=== PATIENT | female | born 1950 | race Caucasian/White ===

== ENCOUNTER 2024-04-16 10:54 | Emergency (ER) | payer BC, SELFPAY ==
[2024-04-16 10:59] VITALS: BP 116/75
[2024-04-16 11:38] LABS: COVID-19 Antigen Positive (Negative)
[2024-04-16 13:17] VITALS: BP 115/67
[2024-04-16 13:43] VITALS: BP 117/102
--- NOTE | 2024-04-16 13:54 | ED.GENMED ---
History of Present Illness
General
Chief Complaint: Breathing Problem
Source: patient
Time Seen by Provider: 04/16/24 13:37
History of Present Illness
History of Present Illness:
74-year-old female with no significant past medical history presents to the emergency department for evaluation after starting to feel ill 1 to 2 days prior to Don, continues with cough, body aches, fever, lightheadedness and decreased p.o.
intake. is also sick at home with similar symptoms but no other family members. Patient is currently visiting family from [place] and is scheduled to return back to [place] this coming Monday. Patient did not take any medications prior to
arrival. Social history was unremarkable. Patient is otherwise denying any chest pain, palpitations, diaphoresis, exertional dyspnea, orthopnea, abdominal pain, nausea, vomiting or urinary symptoms.
Past History
Past History
ED Past Medical History: None
ED Past Surgical History: Orthopedic
Social History
Tobacco: Non-smoker
Alcohol: None
Drug: None
Personal:
Living: with family
Review of Systems
Review of Systems
All Other Systems: ROS reviewed and negative except as documented in HPI and ROS
Phy Exam
Physical Exam
Physical Exam:
GENERAL: Alert , in no apparent distress
EYE: conjunctiva clear
Head: Normocephalic atraumatic
NECK: Supple,
ENT: mmm.
LUNGS: no acute respiratory distress
NEUROLOGICAL: Alert and oriented
SKIN: Warm and dry, skin intact.
MUSCULOSKELETAL: well perfused.
PSYCH: Normal and appropriate interaction.
Scores
Heart Failure Risk
Heart Failure Risk Score: Not Applicable
Heart Score for Chest Pain Patients
STEMI patient?: Not applicable
Withdrawal Assessment of Alcohol
Withdrawal Assessment Completed?: Not applicable
Course
Orders/Labs/Results
Orders:
Orders
04/16/24 11:02
CR Chest - 2 Views Urgent
Comment:
Reason For Exam: cough, fever
04/16/24 11:07
Electrocardiogram (*1) Urgent
Reason for Study: Shortness of Breath
EKG- Treatment ONCE
COVID-19 Antigen Urgent
Source: Nasal Swab
Influenza A+B Rapid Molecular Urgent
JASON Source: Nasal Swab
Specimen Description:
Abnormal Lab Results
04/16/24
11:07
SARS-CoV-2 Antigen Positive A
(Negative)
Vital Signs
Initial and Last Documented VS:
Initial Vital Signs
Temp Pulse Resp BP Pulse Ox
98.4 F 84 16 116/75 99
04/16/24 10:59 04/16/24 10:59 04/16/24 10:59 04/16/24 10:59 04/16/24 10:59
Last Documented Vital Signs
Temp Pulse Resp BP Pulse Ox
98.7 F 67 15 140/78 99
04/16/24 13:17 04/16/24 14:00 04/16/24 14:00 04/16/24 14:00 04/16/24 14:00
MDM/Problems Addressed
Differential Diagnosis Includes:
COVID, flu, pneumonia, other viral etiology
MDM/Problems Addressed:
74-year-old female presenting to the emergency department for evaluation cold and flulike symptoms that been ongoing for the last 7 to 8 days. at home sick with similar symptoms. Patient afebrile currently. Did not take any medications
prior to arrival. Patient in no acute respiratory distress. Labs and chest x-ray ordered while in triage. Patient did test positive for COVID which is likely cause of current symptoms. Patient is not a candidate for Paxlovid given duration of
time since illness started. We discussed supportive measures for COVID. Patient is otherwise stable for discharge home and aware of return precautions.
*Radiology
Radiology exam reviewed: preliminary read by ED provider (Unremarkable chest x-ray)
*Pulse Oximetry
Patient hypoxic: no
*Critical Care Note
Total Time (30-74mins, 75-104mins- exclusive of procedures): Not Applicable
ED Attending Note
-
Portions of this chart may have been created with voice recognition software.� Occasional wrong word or��sound alike� substitutions may have occurred due to the inherent limitations of voice recognition software.
Discharge Plan
Departure
Patient Disposition: Home (Routine Discharge)
Date of Disposition: 04/16/24
Time of Disposition: 13:54
Patient with high blood pressure during this ER visit?: No
Discharge Problem:
COVID-19
Instructions: COVID-19 - ED discharge instructions
Prescriptions:
No Action
CALCIUM
BID
Patient Comments:
dose unknown
Coq-10
1 tab DAILY
Patient Comments:
dose unknown
Move Free
1 tab DAILY
Patient Comments:
dose unknown
OMEGA-3
1 tsp DAILY
VITAMIN D
1 tab DAILY
Patient Comments:
unknown dose
Interventions
Interventions:
*Risk Screen - Suicide Last Done: 04/16/24 13:39
*Neglect/Abuse Screening Last Done: 04/16/24 13:39
ED- Fall Risk Assessment Last Done: 04/16/24 13:46
*ED COVID-19 Vaccine History Last Done: 04/16/24 13:39
*Nursing Disposition Last Done: 04/16/24 14:27
ED- Cardiac Assessment Last Done: 04/16/24 13:46
ED- Pulmonary Assessment Last Done: 04/16/24 13:46
Discharge Date and Time
Discharge Date/Time: 04/16/24 14:28
Print Language: BULGARIAN
[2024-04-16 14:00] VITALS: BP 140/78
== END 2024-04-16 14:28 | disposition home or self-care (01) ==
LOC: EMR 10:54
PROVIDERS: Emergency Medicine; EMERGENCY PHYSICIAN Emergency Medicine
DX: U07.1 COVID-19 (principal)
CPT/HCPCS: 99283; 71046; 87502; 87811; 93005

== ENCOUNTER 2024-04-20 17:19 | Inpatient (IN) | payer OTHER, SELFPAY ==
[2024-04-20] VITALS (9 sets, daily range): BP systolic 98–115; BP diastolic 54–67; PULSE 117–118
--- NOTE | 2024-04-20 14:50 | ED.GENMED ---
History of Present Illness
General
Chief Complaint: Breathing Problem
Source: patient
Exam Limitations: none
Time Seen by Provider: 04/20/24 14:40
History of Present Illness
History of Present Illness:
Patient became ill about a week ago. Seen in the ED. Diagnosed with COVID. Has been weak and in bed since then. Today had an episode of diarrhea. Passed out on the floor. No chest pain. Mild shortness of breath. Mostly complaining of severe
fatigue and weakness.
Past History
Past History
ED Past Medical History: None
ED Past Surgical History: Orthopedic
Social History
Tobacco: Non-smoker
Alcohol: None
Drug: None
Personal:
Living: with family
Review of Systems
Review of Systems
All Other Systems: Not applicable
Constitutional: Reports fatigue; Denies fever
Cardiac: Denies chest pain
ABD/GI: Reports vomiting and diarrhea
Phy Exam
Physical Exam
Physical Exam:
GENERAL: Alert and oriented. Generally weak appearing. Hypoxic on room air.
EYE: Orbits normal.
NECK: Supple, no significant adenopathy.
ENT: Pharynx without erythema
CARDIAC: Tachycardic and regular no murmur regular rate and rhythm without any obvious murmurs.
LUNGS: Mild tachypnea. Decreased breath usually. Mild rhonchi left base
ABDOMEN: Soft, without focal tenderness or distention
NEUROLOGICAL: Alert and oriented , grossly non-focal
SKIN: Warm and dry, no rash or lesion, no discoloration, skin intact.
MUSCULOSKELETAL: No edema,no deformity.Good color
PSYCH: Normal and appropriate interaction.
Scores
Heart Failure Risk
Heart Failure Risk Score: Not Applicable
Sepsis
Sepsis Screening
Sepsis Assessment: Sepsis Ruled Out
Sepsis Screen
Sepsis Screen: Sepsis Ruled Out
Date: 04/20/24
Time: 22:43
Course
Orders/Labs/Results
Orders:
Orders
04/20/24 14:47
Cardiac Monitoring- Treatment ONCE
IV Insert/Care/Rem.- Treatment PRN
0.9% Sodium Chloride 1000 ml [Nss] 1,000 ml IV BOLUS
CXR Port [CR Chest Portable - 1 View] Urgent
Comment:
Reason For Exam: COVID-positive, short of breath, hypoxia
Reason Study Needs to be Portable: Patient Unstable
O2 Therapy [RESP] Stat
Titrate/Wean O2 to maintain O2 sat greater than (%): 94
Pulse Ox/cont/shift [RESP] Stat
Quantity: 1
04/20/24 14:48
Electrocardiogram (*1) Stat
Reason for Study: Other
Other Reason for Exam: pneumonia
EKG- Treatment ONCE
04/20/24 14:54
Complete Blood Count/With Diff Urgent
Comprehensive Metabolic Panel Urgent
TSH Reflex To Free T4 Urgent
Comment: ADD ON
Blood Culture Q30M
JASON Source: Blood/Venous
Specimen Description:
Influenza A+B Rapid Molecular Urgent
JASON Source: Nasal Swab
Specimen Description:
04/20/24 Dinner
Regular
At Your Request: Full Participation
04/20/24 15:53
CefTRIAXone [Rocephin] 1,000 mg IV NOW STA
04/20/24 16:32
Blood Culture Q30M
JASON Source: Blood/Venous
Specimen Description:
04/20/24 16:58
Add On- LAB Urgent
Tests Added?: lactic acid, procalcitonin
Add On- LAB Urgent
Tests Added?: tsh with free t4 reflex
04/20/24 16:59
Admit/Transfer Patient As Directed
Co-Sign Provider:
Level of Care: Inpatient admission
Assign to:: Telemetry
Physician / Group: [email or web address],roopa
Diagnosis: hypoxic resp insuff 2/2 RLL pna recent covid
Reason for Telemetry: Arrhythmia
Date to Stop Telemetry: 04/23/24
Time to Stop Telemetry: 11:00
Reason for Hospitalization: hypoxic resp insuff 2/2 RLL pna recent covid
Expected length of stay greater than two midnights?: Yes
ELOS- Estimated Length of Stay in days: 4
I certify the patient meets the requirements for IP care: Yes
Code Status As Directed
Resuscitation Status: Full Code
Urine Osmolality Random [Osmolality, Random Urine] Routine
Urine Sodium Routine
04/20/24 17:00
0.9% Sodium Chloride 1000 ml [Nss] 1,000 ml IV 100 mls/hr
04/20/24 17:02
PRN Pain Medication Management As Directed
May give lesser potent ordered pain med per pt: Yes
preference::
Protocol:: Medication orders for pain may be administered in a
manner that supports deferring to patient preference
when the pt is:
- Requesting an ordered lesser potent pain medication.
Least to most potent pain medications are defined
as: acetaminophen < NSAID < tramadol < opioids
(morphine, oxycodone, hydromorphone).
- Requesting a lesser dose of the same medication IF
ORDERED.
- Requesting a less intrusive route of administration
if both routes are prescribed by the provider (PO <
IV).
04/20/24 17:04
INFECTIOUS DISEASE CONSULT Routine
Consulting Provider: Daphne Bonilla
Was physician already notified: Yes
Reason for consult: hyoxia,sepsis pna, recent covid multi allergies
04/20/24 17:05
Lactate Level [Lactic Acid] Routine
Osmolality Serum [Serum Osmolality] Routine
04/20/24 19:11
COVID-19 Antigen Urgent
Source: Nasal Swab
04/20/24 20:00
Guaifenesin [Mucinex] 600 mg PO Q12
04/20/24 21:38
Acetaminophen [Tylenol] 650 mg PO Q4HPRN PRN
Enoxaparin Sodium [Lovenox] 40 mg SC QPM
Ipratropium/Albuterol Sulfate [Duoneb] 3 ml INH R Q4HPRN PRN
Ipratropium/Albuterol Sulfate [Duoneb] 3 ml INH R QID
Ondansetron Injectable [Zofran] 4 mg IV Q6HPRN PRN
04/20/24 21:38
Activity As Directed
Activity Level: As Tolerated
Intake/ Output As Directed
Frequency: Per unit guidelines
Orthostatic Vital Signs As Directed
Orthostatic VS Frequency: Daily
Precautions As Directed
Type of Precautions: Droplet
Comment: covid
Vital Signs As Directed
Frequency: Per unit guidelines
O2 Therapy [RESP] Routine
Nasal Cannula Liter Flow: 4 LPM
Titrate/Wean O2 to maintain O2 sat greater than (%): 92
Pulse Ox/spot Check [RESP] Routine
Quantity: 1
Ot Eval And Treat Routine
Pt Eval And Treat Routine
Activity Level: As Tolerated
DX Deep Vein Thrombosis Video Routine
04/21/24 06:00
Complete Blood Count/With Diff IN AM
Comprehensive Metabolic Panel IN AM
04/21/24 12:00
CefTRIAXone [Rocephin] 1,000 mg IV Q24H
04/22/24 06:00
Complete Blood Count/With Diff IN AM
Comprehensive Metabolic Panel IN AM
04/23/24 06:00
Complete Blood Count/With Diff IN AM
Comprehensive Metabolic Panel IN AM
04/23/24 11:00
DC Protocol for Telemetry ONCE
04/24/24 06:00
Complete Blood Count/With Diff IN AM
Comprehensive Metabolic Panel IN AM
Abnormal Lab Results
04/20/24 04/20/24
14:54 17:05
WBC 18.5 H 10^3/uL
(4.8-10.8)
MCH 31.4 H pg
(27.0-31.0)
Abs Immat Gran (auto) 0.1 H 10^3/uL
(0-0.05)
Absolute Neuts (auto) 17.6 H 10^3/uL
(1.4-6.5)
Absolute Lymphs (auto) 0.4 L 10^3/uL
(1.2-3.4)
Immature Gran % 0.6 H %
(0-0.5)
Neutrophils % 95.5 H %
(42.2-75.2)
Lymphocytes % 2.0 L %
(20.5-51.1)
Monocytes % 1.3 L %
(1.7-9.3)
Sodium 128 L mmol/L
(135-145)
Chloride 95 L mmol/L
(98-107)
Carbon Dioxide 19 L mmol/L
(22-30)
BUN 21 H mg/dl
(7-17)
Glucose 144 H mg/dl
(70-99)
Serum Osmolality 273 L mOsm/kg
(275-300)
Calcium 8.2 L mg/dl
(8.4-10.2)
Total Bilirubin 1.9 H mg/dl
(0.2-1.3)
Alkaline Phosphatase 127 H U/L
(38-126)
Total Protein 5.8 L g/dl
(6.3-8.2)
Albumin 3.1 L g/dl
(3.5-5.0)
04/20/24 14:54
04/20/24 14:54
Vital Signs
Initial and Last Documented VS:
Initial Vital Signs
Temp Pulse Resp BP Pulse Ox
99 F 125 22 105/64 89
04/20/24 14:41 04/20/24 14:41 04/20/24 14:41 04/20/24 14:41 04/20/24 14:41
Last Documented Vital Signs
Temp Pulse Resp BP Pulse Ox
102 F H 118 18 111/61 94
04/20/24 22:16 04/20/24 22:16 04/20/24 22:16 04/20/24 22:16 04/20/24 22:16
MDM/Problems Addressed
Differential Diagnosis Includes:
Recent COVID infection. Right lower lobe infiltrate. Likely secondary bacterial. Given allergies to medications. Erythromycin causes hives. Unknown about the tetracycline. She thinks she has taken cephalosporins in the past. Penicillin caused
an unknown issue in her 20s. Feel cephalosporins are safe at this time. Will discuss again to cover the atypicals with the patient
*Radiology
Radiology exam reviewed: preliminary read by ED provider (Right lower lobe infiltrate) and radiology read reviewed (Right lower lobe infiltrate)
*Pulse Oximetry
Patient hypoxic: yes
*Critical Care Note
Total Time (30-74mins, 75-104mins- exclusive of procedures): Not Applicable
Data Reviewed
Review of Other/Old Records Reveals: Labs, Records, Radiology Studies and Testing
ED Attending Note
-
Portions of this chart may have been created with voice recognition software.� Occasional wrong word or��sound alike� substitutions may have occurred due to the inherent limitations of voice recognition software.
Discharge Plan
Departure
Patient Disposition: Admit
Date of Disposition: 04/20/24
Time of Disposition: 16:00
Presentation/result/management discussed w/ accepting MD/DO: Hospitalist
Discharge Problem:
Right lower lobe pneumonia, Right lower lobe pneumon hypoxia, Recent COVID
Interventions
Interventions:
*Risk Screen - Suicide Last Done: 04/20/24 22:13
*General Assessment Last Done: 04/20/24 14:41
*Neglect/Abuse Screening Last Done: 04/20/24 14:41
*ED COVID-19 Vaccine History Last Done: 04/20/24 22:13
*Nursing Disposition Last Done: 04/20/24 21:32
ED- Cardiac Assessment Last Done: 04/20/24 15:00
ED- Pulmonary Assessment Last Done: 04/20/24 15:00
Discharge Date and Time
Discharge Date/Time: 04/20/24 21:34
[2024-04-20] MEDS: NSS 1000 IV ×2 (14:58→18:28)
[2024-04-20 15:08] LABS: Hematocrit 41.9 % (37.0-47.0); Hemoglobin 14.5 g/dL (12.0-16.0); Mean Corp Hgb Conc. 34.6 g/dL (33.0-37.0); Mean Corpuscular Hgb 31.4 pg (27.0-31.0); Mean Corpuscular Volume 90.7 fL (81.0-99.0); Platelet Count 257 10^3/uL (130-400); Red Blood Cell Count 4.62 10^6/uL (4.20-5.40); White Blood Cell Count 18.5 10^3/uL (4.8-10.8)
[2024-04-20 15:33] LABS: % Basophils 0.6 % (0-2); % Immature Granulocytes 0.6 % (0-0.5); % Monocytes 1.3 % (1.7-9.3); % Neutrophils 95.5 % (42.2-75.2); Absolute Basophils 0.1 10^3/uL (0-0.2); Absolute Immature Granulocytes 0.1 10^3/uL (0-0.05); Absolute Lymphocytes 0.4 10^3/uL (1.2-3.4); Absolute Monocytes 0.2 10^3/uL (0.1-0.6); Absolute Neutrophils 17.6 10^3/uL (1.4-6.5); Nucleated Red Blood Cells % 0 %
[2024-04-20 15:44] LABS: ALT (SGPT) 22 U/L (0-35); AST (SGOT) 32 U/L (14-36); Albumin 3.1 g/dl (3.5-5.0); Alkaline Phosphatase 127 U/L (38-126); Blood Urea Nitrogen 21 mg/dl (7-17); Calcium 8.2 mg/dl (8.4-10.2); Carbon Dioxide 19 mmol/L (22-30); Chloride 95 mmol/L (98-107); Estimated Creatinine Clearance 49 ml/min; Glucose 144 mg/dl (70-99); Potassium 4.1 mmol/L (3.5-5.1); Sodium 128 mmol/L (135-145); Total Bilirubin 1.9 mg/dl (0.2-1.3); Total Protein 5.8 g/dl (6.3-8.2); eGFR 58.75
--- NOTE | 2024-04-20 16:09 | HPS.HSE ---
Family Physician
-
Family Physician: NOT KNOW UNKNOWN - PT DOES
Chief Complaint
-
sob cough
History of Present Illness
74-year-old female who reports she was diagnosed with COVID on 04/16, since then she has been severely weak and in bed. She reports having weakness, shortness breath with cough since [place] 04/10/2024. She reports an episode of diarrhea today
and passed out on the floor. She complains of mild shortness of breath, however pulse ox is 89% RA. Her pulse ox is 96% on 4 L nasal cannula. She denies headache, sore throat, chest pain, palpitations, cough, abdominal pain, nausea, vomiting,
urinary symptoms. She past medical history fibromyalgia, right parotidectomy February 2011, confusion for 3 weeks post colonoscopy.
Medical History
Past Medical History
Past Medical History: Reports Other
Additional Past Medical History:
fibromyalgia,
right parotidectomy benign February 2011
confusion for 3 weeks post colonoscopy.
Past Surgical History: Reports Other
Additional Past Surgical History:
right parotidectomy benign February 2011
Social History
Tobacco: Non-smoker
Alcohol: None
Drug: None
Personal: Single
Living: Alone
Employment: Retired
Family History
Family History: Not pertinent
Allergies / Home Medications
Allergies reflects when Allergies were last updated in [facility].
Home Medications with original date entered in [facility]
Allergy/Medication List:
Allergies
Allergy/AdvReac Type Severity Reaction Status Date / Time
cephalexin monohydrate Allergy Unknown Verified 04/20/24 14:44
[From Keflex]
doxycycline Allergy Unknown Verified 04/20/24 14:44
erythromycin base Allergy Unknown Verified 04/20/24 14:44
[Erythromycin Base]
levofloxacin [From Levaquin] Allergy Unknown Verified 04/20/24 14:44
Penicillins Allergy Unknown Verified 04/20/24 14:44
tetracycline [Tetracycline] Allergy Unknown Verified 04/20/24 14:44
brie cheese Allergy Hives, Uncoded 04/20/24 14:44
swelling
Home Medications
ibuprofen 200 mg tablet 400 mg PO DAILYPRN PRN mild pain 04/20/24
Review of Systems
-
History Source: Patient and Family (Friend at bedside)
A 12 point ROS was completed and negative except as noted: Yes
Constitutional: Reports Fatigue; Denies Fever or Chills
EENT: Denies Sore Throat or Runny Nose
Respiratory: Reports Cough and Trouble Breathing (Shortness of breath, MAIER, wheezing)
Cardiac: Reports Syncope; Denies Chest Pain, Diaphoresis or Palpitations
Abdomen/GI: Denies Abdominal Pain, Nausea, Vomiting, Diarrhea, Constipated, Bloody Stools or Black Stools
: Denies Dysuria, Frequency, Flank Pain, Incontinence, Difficulty Voiding or Urgency
Musculoskeletal: Denies Joint Pain or Edema
Skin: Denies Itching or Rash
Neurological: Reports Weakness; Denies Dizzy or Headache
Endocrine: Reports No Symptoms
Hematologic/Lymphatic: Reports No Symptoms
Psych: Reports Calm
Physical Exam
Vital Signs
Vital Signs
Temp Pulse Resp BP Pulse Ox
99 F 125 22 105/64 89
04/20/24 14:41 04/20/24 14:41 04/20/24 14:41 04/20/24 14:41 04/20/24 14:41
Physical Exam
General: Conversant and Other (Awake alert oriented, poor historian); No Pain, Fever or Chills
HEENT: NormoCephalic, Anicteric, PERRLA, [place] Conjunctivae, No Ptosis and Oxygen (4 L nasal cannula)
Respiratory: Wheezes (Expiratory); No Rales or Rhonchi
Cardiac: S1/S2 and Tachycardia (Sinus); No Murmur, Rub, Gallop or Peripheral Edema
Breast: Deferred by me
GI: Soft, Non Tender, Non Distended and Normal Bowel Sounds
Rectal: Deferred by Provider
Genito-urinary: Deferred by me
Musculoskeletal: No Clubbing, No Cyanosis and No Edema
Skin: Warm and Dry; No Rash or Jaundice
Neuro: AO x 3 (But very poor historian), Cranial Nerves Intact and No Sensory Deficits; No Slurred Speech, Facial Droop, Tremors or Sedated
Psych: Anxious
Laboratory Results
-
04/20/24 14:54
04/20/24 14:54
Laboratory Results
Total Bilirubin 1.9 mg/dl (0.2-1.3) H 04/20/24 14:54
AST 32 U/L (14-36) 04/20/24 14:54
ALT 22 U/L (0-35) 04/20/24 14:54
Alkaline Phosphatase 127 U/L (38-126) H 04/20/24 14:54
Data Reviewed
-
Diagnostic Radiology: Report Reviewed by me
Lab Data: Labs Reviewed by me
Impression/Plan
-
Impression/plan:
Admit to telemetry
#Sepsis 2/2 right lower lobe pneumonia recent COVID
WBC 18.5 with left shift, 99F, HR 125, 105/64
-IV 1 L NSS given in ER
-IV Rocephin due to multi abx allerrgies
- consult ID for Abx mgmt
-Mucinex twice daily
-Follow CBC, CMP
CXR:
1. New moderate asymmetric opacity in the right lower lung most consistent with MODERATE RIGHT LOWER LOBE PNEUMONIA.
2. An acute inflammatory pneumonitis or subsegmental atelectasis are considered less likely.
#Vasovagal syncope secondary hypovolemia
-IV NSS 1 L given in ER
-Continue IV NSS 80 cc/h
-Check orthostatic vitals tomorrow
#Hypovolemic hyponatremia
NA 128
Urine NA, urine Osmo, serum Osmo, TSH with free T4 reflex
IV NSS 1 liter given in er
Iv nss 80 cc/hr
-Follow BMP
#Fibromyalgia Hx
Other PMH:
right parotidectomy February 2011
confusion for 3 weeks post colonoscopy
DVT prophylaxis
Subcu Lovenox
Full code
[2024-04-20] MEDS: ROCEPHIN 1000 MG IV (16:36)
--- NOTE | 2024-04-20 16:44 | W.PN.UPDATE ---
Update Note
Progress Note Update
This note serves as an addendum to the H&P by top former [facility]
Marion ISABEL
HPI
74F fibromyalgia, remote HX right parotidectomy seen at ER:
- she was diagnosed with COVID 1 week ago, since then she has been severely weak and in bed.
- episode of diarrhea today and passed out on the floor.
- mild shortness of breath
ROS:
denies headache, sore throat, chest pain, palpitations, cough, abdominal pain, nausea, vomiting, urinary symptoms.
PHX; see above
Reviewed VS: ST, borderline hypotensive, tachypneic, POx 89 on RA
PE
Gen: thin, anxious , teary
HEENT: anicteric
Neck: supple
Lungs: cough with deep breathing hus limit the exam
Cor: RRR S1 S2
Abdomen: soft benign
HAM SMOKER: AAO3
MS: no edema
Psych: anxious
Laboratory Tests
04/20/24
14:54
WBC 18.5 H
Sodium 128 L
Chloride 95 L
Carbon Dioxide 19 L
BUN 21 H
Creatinine 1.0
eGFR 58.75
BCx sent
CXR:
New moderate asymmetric opacity in the right lower lung most consistent with MODERATE RIGHT LOWER LOBE PNEUMONIA. An acute inflammatory pneumonitis or subsegmental atelectasis are considered less likely.
ASSESSMENT & PLAN
Sepsis due to PNA ; WCC > 10, ST, tachypneic - s/p septic NS 1 L
Rt LL PNA presumed CAP
Asso. acute Hypoxic RI
HX PCN, LVQ , Doxy, Keflex allergy with unknown allergy
Recent POS Covid 04/16/24 , onset was since 04/09/24
- NS @ 80/H
- IV CFTX
- Mucinex BID
- f/u BCx
- O2 PRN; Goal POx > 94 %
- ID consult for choice of ABx
Suspect vasovagal syncope
Hypovolemia
- TLM monitor
DVT Px: LMWH
Full code
IP TLM
--- NOTE | 2024-04-20 17:06 | CON.ID ---
Consultation
-
Date/Time Consultation Requested: April 20 2024 1645
Date/Time Consultation Performed: April 20, 2024 1710
Requesting Provider: Marion Fields NP
Performing Provider: Dr. Daphne Bonilla
Reason for Consultation: Pneumonia, multiple antibiotic allergies
Chief Complaint / Past History
Chief Complaint
Cough, SOB
History of Present Illness
74-year-old female without significant PMHx from [place], currently visiting family since 04/03 who developed cough, myalgia, fever the day prior to [place]. Her and 6 year old grandson had similar sxs. She presented to [facility]
April 16. She tested positive for COVID. She is not up to date with vaccine.. Chest x-ray negative. She was saturating well in room air. She was not a candidate for Paxlovid given symptoms for 7 to 8 days prior to presentation. She was
discharged to home. However she continued to feel unwell with profound weakness. She was not able to get out of bed. Appetite poor. + dry cough and shortness of breath. She had diarrhea today. Her son intended to bring her to the hospital, but
was too weak to walk to the car and she passed out briefly. EMS brought her to the ER. O2 sat 89% room air. WBC 18.5. Chest x-ray shows new right lower lobe opacity. She received ceftriaxone. She has multiple abx allergies recieved in her 20's
and she cannot recall the reactions, possibly rash. Reactions were not serious. She is able to take the abx with Benadryl.
Past History
Additional Past Medical History:
Fibromyalgia - resolved
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
Allergy History:
cephalexin monohydrate [From Keflex] Allergy (Verified 04/20/24 14:44)
Unknown
doxycycline Allergy (Verified 04/20/24 14:44)
Unknown
erythromycin base [Erythromycin Base] Allergy (Verified 04/20/24 14:44)
Unknown
levofloxacin [From Levaquin] Allergy (Verified 04/20/24 14:44)
Unknown
Penicillins Allergy (Verified 04/20/24 14:44)
Unknown
tetracycline [Tetracycline] Allergy (Verified 04/20/24 14:44)
Unknown
brie cheese Allergy (Uncoded 04/20/24 14:44)
Hives, swelling
Medications Reviewed: Yes
Current Antibiotics:
Ceftriaxone
Social History
Tobacco: Non-Smoker
Alcohol: None
Drug: None
Personal:
Living: Other (Lives in [place])
Family History
Family History: Not Pertinent
Review of Systems
Review of Systems
General: Fever, Chills and Change in Appetite
HEENT: Negative Stiff Neck, Sinus Problems, Headache or Pharyngitis
Cardiovascular: Chest Pain and Dyspnea
Respiratory: Dyspnea and Cough; Negative Sputum Production
Gasteroenterology: Diarrhea (today); Negative Nausea or Vomiting
Genital / Urological: Negative Dysuria or Flank Pain
Endocrine: Weakness
Musculoskeletal: Negative Arthralgias
Skin / Hair / Nails: Negative Rash
Neurological: Negative Dizziness
All systems: All other systems were reviewed and were negative
Vital Signs
Temp Pulse Resp BP Pulse Ox
99 F 125 22 105/64 89
04/20/24 14:41 04/20/24 14:41 04/20/24 14:41 04/20/24 14:41 04/20/24 14:41
Physical Exam
Physical Exam
Constitutional: Acutely Ill
Head: Other (No frontal or maxillary sinus tenderness)
Eyes: No Conjunctival Hemorrhage and Sclera Anicteric
Cardiovascular: S1/S2 and Other (Tachycardic)
Pulmonary: Rales (Right base crackles)
Gastrointestinal: Soft, Non Tender, Non Distended and Normal Bowel Sounds
Genito-Urinary: Negative CVA Tenderness
Extremities: Negative Edema
Neurological: AO x 3
Lab / Diagnostic Study Results
04/20/24 14:54
04/20/24 14:54
Abs Immat Gran (auto) 0.1 10^3/uL (0-0.05) H 04/20/24 14:54
Absolute Neuts (auto) 17.6 10^3/uL (1.4-6.5) H 04/20/24 14:54
Absolute Lymphs (auto) 0.4 10^3/uL (1.2-3.4) L 04/20/24 14:54
Absolute Monos (auto) 0.2 10^3/uL (0.1-0.6) 04/20/24 14:54
Absolute Basos (auto) 0.1 10^3/uL (0-0.2) 04/20/24 14:54
Immature Gran % 0.6 % (0-0.5) H 04/20/24 14:54
Neutrophils % 95.5 % (42.2-75.2) H 04/20/24 14:54
Lymphocytes % 2.0 % (20.5-51.1) L 04/20/24 14:54
Monocytes % 1.3 % (1.7-9.3) L 04/20/24 14:54
Eosinophils % 0.0 % (0-6) 04/20/24 14:54
Basophils % 0.6 % (0-2) 04/20/24 14:54
Microbiology Results
Micro:
04/20/24 16:32 Blood Culture - Pending
Blood/Venous
04/20/24 14:54 Influenza Types A & B (LISSETH) - Final
Nasal Swab Negative for Influenza A & B, NAAT
Negative results must be combined with clinical observations
and patient history.
Nucleic Acid Amplification test (NAAT)performed on the
[employer] platform.
04/20/24 14:54 Blood Culture - Pending
Blood/Venous
04/20/24 CXR: New moderate asymmetric opacity in the right lower lung most consistent with MODERATE RIGHT LOWER LOBE PNEUMONIA.
Assessment / Plan
# Recent COVID 19 infection
- Unvaccinated status
- Symptom onset 04/09/24
- 04/16 COVID19 antigen positive
- 04/16 CXR negative
- Presented to ED 04/16 , out of window for treatment.
- If repeat COVID 19 remains positive, isolate.
# RLL CAP
# Leukocytosis
# Hypoxic respiratory insufficiency
# Multiple abx allergies
- Flu neg.
- Ordered urine legionella and strep pneumoniae antigen.
- Continue ceftriaxone.
- Add Azithromycin 500mg po daily.
- Monitor closely for drug reaction
- Trend wbc/temps.
[2024-04-20 17:35] LABS: Osmolality Serum 273 mOsm/kg (275-300)
[2024-04-20 17:41] LABS: Lactic Acid 1.6 mmol/L (0.7-2.0)
[2024-04-20] MEDS: ZITHROMAX 500 MG PO (18:23)
[2024-04-20 18:31] LABS: TSH Reflex To Free T4 2.78 uIU/ml (0.47-4.68)
[2024-04-20 19:59] LABS: Lactic Acid 1.3 mmol/L (0.7-2.0)
[2024-04-20 20:00] LABS: COVID-19 Antigen Positive (Negative)
[2024-04-20] MEDS: MUCINEX 600 MG PO (20:10)
[2024-04-20 20:20] LABS: Procalcitonin 14.06 ng/ml (0.0-0.25)
--- NOTE | 2024-04-20 22:00 | PTCARENOTE ---
Received patient from ED. Patient weak and was transferred directly to the bed. Patient assessed. AAOx3, Lungs shallow, decreased, dyspneic on exertion on 4L POX 94. IVF infusing. Patient verbalized an understanding to ring for all transfers. Bed
alarm placed for safety. Patient oriented to the unit. Call underwood in reach.
[2024-04-20] MEDS: LOVENOX 40 MG SC (22:01)
[2024-04-20] MEDS: TYLENOL 650 MG PO (22:02)
[2024-04-21] VITALS (8 sets, daily range): BP systolic 102–138; BP diastolic 57–67; O2SAT 95
[2024-04-21] MEDS: NSS 1000 IV (02:33)
[2024-04-21 06:52] LABS: Hematocrit 35.8 % (37.0-47.0); Hemoglobin 12.6 g/dL (12.0-16.0); Mean Corp Hgb Conc. 35.2 g/dL (33.0-37.0); Mean Corpuscular Hgb 31.7 pg (27.0-31.0); Mean Corpuscular Volume 89.9 fL (81.0-99.0); Mean Platelet Volume 10.5 fL (7.4-10.4); Platelet Count 247 10^3/uL (130-400); Red Blood Cell Count 3.98 10^6/uL (4.20-5.40); Red Cell Dist. Width 12.9 % (11.5-14.5)
[2024-04-21 07:12] LABS: ALT (SGPT) 18 U/L (0-35); AST (SGOT) 25 U/L (14-36); Albumin 2.5 g/dl (3.5-5.0); Alkaline Phosphatase 102 U/L (38-126); Blood Urea Nitrogen 23 mg/dl (7-17); Calcium 7.7 mg/dl (8.4-10.2); Carbon Dioxide 19 mmol/L (22-30); Chloride 101 mmol/L (98-107); Estimated Creatinine Clearance 51 ml/min; Glucose 99 mg/dl (70-99); Potassium 4.1 mmol/L (3.5-5.1); Sodium 128 mmol/L (135-145); Total Bilirubin 1.2 mg/dl (0.2-1.3); eGFR > 60.00
[2024-04-21 08:01] LABS: % Basophils 0.1 % (0-2); % Eosinophils 0.1 % (0-6); % Immature Granulocytes 0.9 % (0-0.5); % Lymphocytes 4.2 % (20.5-51.1); % Monocytes 1.6 % (1.7-9.3); % Neutrophils 93.1 % (42.2-75.2); Absolute Immature Granulocytes 0.1 10^3/uL (0-0.05); Absolute Lymphocytes 0.6 10^3/uL (1.2-3.4); Absolute Monocytes 0.2 10^3/uL (0.1-0.6); Nucleated Red Blood Cells % 0 %
[2024-04-21] MEDS: MUCINEX 600 MG PO ×2 (08:20→21:53)
[2024-04-21] MEDS: ZITHROMAX 500 MG PO (08:20)
[2024-04-21] MEDS: ProAIR HFA INHALER 1 PUFF INH ×2 (08:44→12:30)
--- NOTE | 2024-04-21 11:25 | W.PN.ID1 ---
Date of Service
Date of Service: April 21, 2024
Today's Communication
Continue ceftriaxone and azithromycin.
Assessment / Plan
# RLL CAP
# Leukocytosis - improving
# Fever
# Hyponatremia - ?legionella
# Hypoxic respiratory insufficiency, off O2
# Multiple abx allergies
- Flu neg.
- Ordered urine legionella and strep pneumoniae antigen.
- Continue ceftriaxone and azithromycin (d2)
- Trend wbc/temps.
# Recent COVID 19 infection
- Unvaccinated status
- Symptom onset 04/09/24
- 04/16 COVID19 antigen positive
- 04/16 CXR negative
- Presented to ED 04/16 , out of window for treatment.
- 04/20/24 repeat COVID 19 remains positive, continue isolation.
# Deconditioned state
- PT/OT eval
Chief Complaint
-: Pneumonia
Subjective / Review of Systems
C/o profound weakness.
Cough slightly better.
No further diarrhea.
Vital Signs / Physical Exam
Vital Signs
Vital Signs
Temp Pulse Resp BP Pulse Ox
98.9 F 88 16 109/61 94
04/21/24 07:35 04/21/24 08:56 04/21/24 08:56 04/21/24 07:35 04/21/24 08:56
Physical Exam
Constitutional: Acutely Ill
Eyes: Sclera Anicteric
Cardiovascular: Regular Rate and S1/S2
Pulmonary: Coarse (right base crackles. )
Gastrointestinal: Soft, Non Tender, Non Distended and Normal Bowel Sounds
Extremities: Negative Edema
Neurological: AO x 3
Objective Data
Lab Data
Lab Results
04/21/24 05:41
04/21/24 05:41
Estimated Creat Clear 51 ml/min 04/21/24 05:41
Lactic Acid 1.3 mmol/L (0.7-2.0) 04/20/24 19:11
Total Bilirubin 1.2 mg/dl (0.2-1.3) 04/21/24 05:41
AST 25 U/L (14-36) 04/21/24 05:41
ALT 18 U/L (0-35) 04/21/24 05:41
Alkaline Phosphatase 102 U/L (38-126) 04/21/24 05:41
Most recent labs reviewed.
Micro Results:
04/20/24 16:32 Blood Culture - Pending
Blood/Venous
04/20/24 14:54 Influenza Types A & B (LISSETH) - Final
Nasal Swab Negative for Influenza A & B, NAAT
Negative results must be combined with clinical observations
and patient history.
Nucleic Acid Amplification test (NAAT)performed on the
[employer] platform.
04/20/24 14:54 Blood Culture - Pending
Blood/Venous
04/20/24 CXR: New moderate asymmetric opacity in the right lower lung most consistent with MODERATE RIGHT LOWER LOBE PNEUMONIA.
[2024-04-21] MEDS: ROCEPHIN 1000 MG IV (12:36)
[2024-04-21] MEDS: STERILE WATER FOR INJECTION 10 ML IV (12:37)
--- NOTE | 2024-04-21 14:20 | W.PN.HOSP.TC ---
Today's Communication/Plan
-
IV abx for now
off oxygen
SNF on dc
IV for now
Assessment / Plan
Assessment / Plan
#Sepsis 2/2 right lower lobe secondary bacterial pneumonia in setting of recent COVID infection--poa
WBC 18.5 with left shift, 99F, HR 125, 105/64
-IV 1 L NSS given in ER
-IV Rocephin and azithromycin
-Mucinex twice daily
-Follow CBC, CMP. WBC downtrending. LA wnl. Procal of 14 noted on admission
-Symptomatic management. Patient weaned off to room air.
-should get repeat CXR in 4-6 weeks to assess for resolution
# Acute hypoxic respiratory insufficiency likely secondary to above
-Patient weaned off to room air. As needed inhalers
#Vasovagal syncope secondary hypovolemia
-IV NSS 1 L given in ER
-Continue IV NSS 80 cc/h
#Hypovolemic hyponatremia
NA 128
, TSH with free T4 reflex
IV NSS 1 liter given in er
Iv nss 80 cc/hr
-Follow BMP
#Fibromyalgia Hx
DVT prophylaxis
Subcu Lovenox
Full code
PT/OT-SNF. CM aware.
Anticipated Discharge: 24 - 48 hours
Subjective/Interval History
-
Date of Service: April 21, 2024
weaned off oxygen on room air
states she feels extremely tired
spiked fever overnight
Objective Data
-
Labs:
Laboratory Results
04/21/24
05:41
WBC 15.0 H
Hgb 12.6
Hct 35.8 L
Plt Count 247
Sodium 128 L
Potassium 4.1
Chloride 101
Carbon Dioxide 19 L
BUN 23 H
Creatinine 0.9
Glucose 99
Calcium 7.7 L
Total Bilirubin 1.2
AST 25
ALT 18
Alkaline Phosphatase 102
Vital Signs:
Vital Signs
Temp Pulse Resp BP Pulse Ox
98.9 F 101 16 109/61 97
04/21/24 07:35 04/21/24 12:35 04/21/24 12:35 04/21/24 07:35 04/21/24 12:35
I&O
04/20/24 04/21/24 04/22/24
06:59 06:59 06:59
Intake Total 1679
Balance 1679
Physical Exam
-
General: Appears Chronically Ill and Cachectic
HEENT: Normocephalic, Atraumatic and Moist Mucous Membranes
Respiratory: Clear to Auscultation
Cardiac: Regular Rhythm and S1/S2; Negative Murmur, Rub or Gallop
GI: Soft, Nontender, Nondistended and Normal Bowel Sounds; Negative Organomegaly
Rectal: Deferred by Provider
Musculoskeletal: No Clubbing, No Cyanosis and No Edema
Skin: Negative Rash
Neuro: Awake, AO x 3, No Motor Deficits and Nonfocal/Grossly Intact
Psych: Calm
Data Reviewed
-
Total Time Spent with Patient (in minutes): 55
[2024-04-21] MEDS: LOVENOX 40 MG SC (17:03)
[2024-04-21] MEDS: NSS IV (21:52)
[2024-04-21] MEDS: BENADRYL 25 MG PO (23:01)
[2024-04-22] VITALS (7 sets, daily range): BP systolic 116–135; BP diastolic 61–71
[2024-04-22 03:08] LABS: Osmolality Urine 482 mOsm/kg (300-900)
[2024-04-22 03:19] LABS: Urine Sodium 7 mmol/L (30-90)
[2024-04-22] MEDS: NSS 1000 IV (05:36)
[2024-04-22 07:26] LABS: % Basophils 0.4 % (0-2); % Immature Granulocytes 1.3 % (0-0.5); % Lymphocytes 7.1 % (20.5-51.1); % Neutrophils 88.2 % (42.2-75.2); Absolute Immature Granulocytes 0.1 10^3/uL (0-0.05); Absolute Lymphocytes 0.8 10^3/uL (1.2-3.4); Absolute Monocytes 0.3 10^3/uL (0.1-0.6); Absolute Neutrophils 9.9 10^3/uL (1.4-6.5); Hematocrit 32.4 % (37.0-47.0); Hemoglobin 11.8 g/dL (12.0-16.0); Mean Corp Hgb Conc. 36.4 g/dL (33.0-37.0); Mean Corpuscular Hgb 32.6 pg (27.0-31.0); Mean Corpuscular Volume 89.5 fL (81.0-99.0); Mean Platelet Volume 10.3 fL (7.4-10.4); Nucleated Red Blood Cells % 0 %; Platelet Count 265 10^3/uL (130-400); Red Blood Cell Count 3.62 10^6/uL (4.20-5.40); Red Cell Dist. Width 13.1 % (11.5-14.5); White Blood Cell Count 11.2 10^3/uL (4.8-10.8)
[2024-04-22 07:32] LABS: ALT (SGPT) 29 U/L (0-35); AST (SGOT) 37 U/L (14-36); Albumin 2.3 g/dl (3.5-5.0); Alkaline Phosphatase 116 U/L (38-126); Blood Urea Nitrogen 15 mg/dl (7-17); Calcium 7.6 mg/dl (8.4-10.2); Carbon Dioxide 20 mmol/L (22-30); Chloride 105 mmol/L (98-107); Estimated Creatinine Clearance 57 ml/min; Glucose 88 mg/dl (70-99); Potassium 3.8 mmol/L (3.5-5.1); Sodium 133 mmol/L (135-145); Total Bilirubin 0.5 mg/dl (0.2-1.3); Total Protein 4.7 g/dl (6.3-8.2); eGFR > 60.00
[2024-04-22] MEDS: ZITHROMAX 500 MG PO (07:52)
[2024-04-22] MEDS: MUCINEX 600 MG PO ×2 (07:52→21:12)
[2024-04-22] MEDS: BENADRYL 25 MG PO ×2 (08:08→17:07)
--- NOTE | 2024-04-22 11:27 | W.PN.ID1 ---
Date of Service
Date of Service: April 22, 2024
Today's Communication
DC azithromycin.
Continue ceftriaxone.
Assessment / Plan
# Pneumococcal PNA, unvaccinated status
# Leukocytosis - improving
# Fever - resolved
# s/p Hypoxic respiratory insufficiency
# Multiple abx allergies
- Flu neg.
- Urine strep pneumo antigen positive
- Continue ceftriaxone (d3)
- DC azithromycin (d3)
- Trend wbc/temps.
# Recent COVID 19 infection
- Unvaccinated status
- Symptom onset 04/09/24
- 04/16 COVID19 antigen positive
- 04/16 CXR negative
- Presented to ED 04/16 , out of window for treatment.
- 04/20/24 repeat COVID 19 remains positive, continue isolation.
# Deconditioned state
- PT recommends rehab
Chief Complaint
-: Pneumonia
Subjective / Review of Systems
Feels weak.
Cough slightly better.
Vital Signs / Physical Exam
Vital Signs
Vital Signs
Temp Pulse Resp BP Pulse Ox
98.2 F 91 16 123/61 92
04/22/24 08:23 04/22/24 08:23 04/22/24 08:23 04/22/24 08:23 04/22/24 08:23
Physical Exam
Constitutional: Comfortable and Non-toxic
Eyes: Sclera Anicteric
Cardiovascular: Regular Rate and S1/S2
Pulmonary: Coarse (right base crackles)
Gastrointestinal: Soft, Non Tender, Non Distended and Normal Bowel Sounds
Extremities: Negative Edema
Neurological: AO x 3
Objective Data
Lab Data
Lab Results
04/22/24 06:30
04/22/24 06:30
Estimated Creat Clear 57 ml/min 04/22/24 06:30
Lactic Acid 1.3 mmol/L (0.7-2.0) 04/20/24 19:11
Total Bilirubin 0.5 mg/dl (0.2-1.3) 04/22/24 06:30
AST 37 U/L (14-36) H 04/22/24 06:30
ALT 29 U/L (0-35) 04/22/24 06:30
Alkaline Phosphatase 116 U/L (38-126) 04/22/24 06:30
Most recent labs reviewed.
Micro Results:
04/22/24 02:00 Legionella Urinary Antigen - Final
Urine Negative for Legionella pneumophila Serogroup 1 antigen.
A negative result does not rule out the possiblity of
Legionella infection due to other serogroups or species of
Legionella. Clinical correlation is recommended.
Streptococcus pneumoniae Antigen (M - Final
Positive for Strep pneumo Ag
04/20/24 16:32 Blood Culture - Preliminary
Blood/Venous No Growth in 24 hours- Final report to follow
04/20/24 14:54 Blood Culture - Preliminary
Blood/Venous No Growth in 24 hours- Final report to follow
04/20/24 14:54 Influenza Types A & B (LISSETH) - Final
Nasal Swab Negative for Influenza A & B, NAAT
Negative results must be combined with clinical observations
and patient history.
Nucleic Acid Amplification test (NAAT)performed on the
[employer] platform.
04/20/24 CXR: New moderate asymmetric opacity in the right lower lung most consistent with MODERATE RIGHT LOWER LOBE PNEUMONIA.
Care Review
Plan reviewed with: Physician (Dr. Hardin)
[2024-04-22] MEDS: ROCEPHIN 2000 MG IV (12:48)
[2024-04-22] MEDS: STERILE WATER FOR INJECTION 20 ML IV (12:50)
--- NOTE | 2024-04-22 13:56 | W.PN.HOSP.TC ---
Today's Communication/Plan
-
continue Rocephin, stop Azithromycin
Assessment / Plan
Assessment / Plan
#Sepsis 2/2 right lower lobe secondary bacterial pneumonia in setting of recent COVID infection--poa
urine pos for Strep PNA
WBC 18.5-->15.0-->11.2, 99F, HR 125, 105/64
-IV 1 L NSS given in ER
-IV Rocephin and azithromycin given, ID will be stopping the Azithromycin
-Mucinex twice daily
-Follow CBC, CMP. WBC downtrending. LA wnl. Procal of 14 noted on admission
-Symptomatic management. Patient weaned off to room air.
-should get repeat CXR in 4-6 weeks to assess for resolution
Covid-19
symptom onset 04/09, tested pos 04/16 (as per ID, out of window for treatment)
repeat study remained pos on 04/20
# Acute hypoxic respiratory insufficiency likely secondary to above
-Patient weaned off to room air. As needed inhalers
#Vasovagal syncope secondary hypovolemia
-IV NSS 1 L given in ER
-Continue IV NSS 80 cc/h
#Hypovolemic hyponatremia
NA 128-->133
, TSH with free T4 reflex
IV NSS 1 liter given in er
Iv nss 80 cc/hr, will slow IVF, but continue for now
-Follow BMP
#Fibromyalgia Hx
DVT prophylaxis
Subcu Lovenox
reviewed with Dr. Bonilla
Full code
PT/OT-SNF. CM aware.
Anticipated Discharge: 24 - 48 hours
Subjective/Interval History
-
Date of Service: April 22, 2024
very anxious over her medical condition
Objective Data
-
Labs:
Laboratory Results
04/22/24
06:30
WBC 11.2 H
Hgb 11.8 L
Hct 32.4 L
Plt Count 265
Sodium 133 L
Potassium 3.8
Chloride 105
Carbon Dioxide 20 L
BUN 15
Creatinine 0.8
Glucose 88
Calcium 7.6 L
Total Bilirubin 0.5
AST 37 H
ALT 29
Alkaline Phosphatase 116
Vital Signs:
Vital Signs
Temp Pulse Resp BP Pulse Ox
97.7 F 89 20 117/66 93
04/22/24 11:36 04/22/24 11:36 04/22/24 11:36 04/22/24 11:36 04/22/24 11:36
I&O
04/21/24 04/22/24 04/23/24
06:59 06:59 06:59
Intake Total 1680 / 1680 1680 / 1680
Output Total 450 / 450
Balance 1680 / 1680 1230 / 1230
Review of Systems
-
History Source: Patient and Coordinated Provider
Constitutional: Reports No Appetite
EENT: Reports No Symptoms Reported
Respiratory: Reports Cough and Trouble Breathing
Cardiac: Reports No Symptoms; Denies Chest Pain
Genitourinary: Reports No Symptoms
Physical Exam
-
General: Well Developed, Well Nourished and No Apparent Distress
HEENT: Normocephalic, Atraumatic and Moist Mucous Membranes
Respiratory: Rales (rt mid lung rales, do not clear with coughing); Negative Wheezes
Cardiac: Regular Rhythm and S1/S2
GI: Soft, Nontender and Nondistended
Musculoskeletal: No Clubbing, No Cyanosis and No Edema
Psych: Anxious
--- NOTE | 2024-04-22 15:27 | CM ---
Addendum entered by Evonne Heard RN 04/22/24 15:34:
Patient's PCP is Dr. Bennett in [place].
Original Note:
Reviewed the chart notes and spoke with the patient via telephone due to the patient being Covid +. The patient resides with her spouse in a one story home with no steps to enter in [place]. The patient is visiting her son in the area. He
resides in a two story home. The patient reports no DME/VN/SNF in the past. The patient refuses recommendation of SNF, but is agreeable to VN services if needed. Patient feels she is getting better each day. Patient confirmed pharmacy of choice
in this area is [facility]. CM continues to be available to patient/family and is monitoring medical plan for needs at discharge.
Plan: Discharge to home with VN services if appropriate.
[2024-04-22] MEDS: LOVENOX 40 MG SC (17:07)
[2024-04-22] MEDS: NSS IV (21:12)
[2024-04-22] MEDS: TYLENOL 650 MG PO (22:53)
[2024-04-23] MEDS: NSS 1000 IV (02:45)
[2024-04-23] MEDS: BENADRYL 25 MG PO ×3 (02:47→18:28)
[2024-04-23 03:17] VITALS: BP 126/70
[2024-04-23 07:25] VITALS: BP 129/70
[2024-04-23] MEDS: MUCINEX 600 MG PO ×2 (07:56→20:25)
[2024-04-23 08:20] LABS: % Basophils 0.7 % (0-2); % Eosinophils 0.4 % (0-6); % Immature Granulocytes 4.2 % (0-0.5); % Lymphocytes 10.4 % (20.5-51.1); % Monocytes 4.5 % (1.7-9.3); % Neutrophils 79.8 % (42.2-75.2); Absolute Basophils 0.1 10^3/uL (0-0.2); Absolute Immature Granulocytes 0.3 10^3/uL (0-0.05); Absolute Lymphocytes 0.8 10^3/uL (1.2-3.4); Absolute Monocytes 0.3 10^3/uL (0.1-0.6); Absolute Neutrophils 6.1 10^3/uL (1.4-6.5); Hematocrit 34.4 % (37.0-47.0); Hemoglobin 12.3 g/dL (12.0-16.0); Mean Corp Hgb Conc. 35.8 g/dL (33.0-37.0); Mean Corpuscular Hgb 32.5 pg (27.0-31.0); Mean Corpuscular Volume 90.8 fL (81.0-99.0); Mean Platelet Volume 10.1 fL (7.4-10.4); Nucleated Red Blood Cells % 0 %; Platelet Count 281 10^3/uL (130-400); Red Blood Cell Count 3.79 10^6/uL (4.20-5.40); Red Cell Dist. Width 13.2 % (11.5-14.5); White Blood Cell Count 7.6 10^3/uL (4.8-10.8)
[2024-04-23 08:39] LABS: ALT (SGPT) 50 U/L (0-35); AST (SGOT) 54 U/L (14-36); Albumin 2.5 g/dl (3.5-5.0); Alkaline Phosphatase 205 U/L (38-126); Blood Urea Nitrogen 10 mg/dl (7-17); Carbon Dioxide 21 mmol/L (22-30); Chloride 103 mmol/L (98-107); Estimated Creatinine Clearance 66 ml/min; Glucose 87 mg/dl (70-99); Potassium 3.7 mmol/L (3.5-5.1); Sodium 134 mmol/L (135-145); Total Bilirubin 0.6 mg/dl (0.2-1.3); Total Protein 5.1 g/dl (6.3-8.2); eGFR > 60.00
[2024-04-23 09:25] VITALS: BP 139/79; PULSE 88; O2SAT 96
--- NOTE | 2024-04-23 10:42 | PTCARENOTE ---
Patient resting in bed this AM. Provided toothbrush and bath wipes which she used herself. She ordered and ate breakfast. Patient appears slightly anxious and repeatedly asks about her prognosis and plan of care. I gave her the most updated
information at the time.
--- NOTE | 2024-04-23 10:57 | W.PN.ID1 ---
Date of Service
Date of Service: April 23, 2024
Today's Communication
- Continue ceftriaxone (d4)
-At time of discharge, transition to cefuroxime 500mg po bid.
Assessment / Plan
# Pneumococcal PNA, unvaccinated status
# Leukocytosis - resolved
# Fever - resolved
# s/p Hypoxic respiratory insufficiency
# Multiple abx allergies
- Flu neg.
- Urine strep pneumo antigen positive
- Continue ceftriaxone (d4)
-At time of discharge, transition to cefuroxime 500mg po bid.
# Recent COVID 19 infection
- Unvaccinated status
- Symptom onset 04/09/24
- 04/16 COVID19 antigen positive
- 04/16 CXR negative
- Presented to ED 04/16 , out of window for treatment.
- 04/20/24 repeat COVID 19 remains positive, continue isolation.
Chief Complaint
-: Pneumonia
Subjective / Review of Systems
Feeling better. Not as weak. No diarrhea.
Vital Signs / Physical Exam
Vital Signs
Vital Signs
Temp Pulse Resp BP Pulse Ox
97.6 F 75 16 129/70 97
04/23/24 07:25 04/23/24 07:25 04/23/24 07:25 04/23/24 07:25 04/23/24 07:25
Physical Exam
Constitutional: No Acute Distress and Comfortable
Cardiovascular: Regular Rate and S1/S2
Pulmonary: Rales (Crackles Right base > L base) and Non Labored
Gastrointestinal: Soft, Non Tender, Non Distended and Normal Bowel Sounds
Neurological: AO x 3
Objective Data
Lab Data
Lab Results
04/23/24 07:43
04/23/24 07:43
Estimated Creat Clear 66 ml/min 04/23/24 07:43
Lactic Acid 1.3 mmol/L (0.7-2.0) 04/20/24 19:11
Total Bilirubin 0.6 mg/dl (0.2-1.3) 04/23/24 07:43
AST 54 U/L (14-36) H 04/23/24 07:43
ALT 50 U/L (0-35) H 04/23/24 07:43
Alkaline Phosphatase 205 U/L (38-126) H 04/23/24 07:43
Most recent labs reviewed.
Micro Results:
04/20/24 16:32 Blood Culture - Preliminary
Blood/Venous No Growth in 48 hours- Final report to follow
04/20/24 14:54 Blood Culture - Preliminary
Blood/Venous No Growth in 48 hours- Final report to follow
04/22/24 02:00 Legionella Urinary Antigen - Final
Urine Negative for Legionella pneumophila Serogroup 1 antigen.
A negative result does not rule out the possiblity of
Legionella infection due to other serogroups or species of
Legionella. Clinical correlation is recommended.
Streptococcus pneumoniae Antigen (M - Final
Positive for Strep pneumo Ag
04/20/24 14:54 Influenza Types A & B (LISSETH) - Final
Nasal Swab Negative for Influenza A & B, NAAT
Negative results must be combined with clinical observations
and patient history.
Nucleic Acid Amplification test (NAAT)performed on the
[employer] platform.
04/20/24 CXR: New moderate asymmetric opacity in the right lower lung most consistent with MODERATE RIGHT LOWER LOBE PNEUMONIA.
04/23/24 CXR: There is a persistent right lower lobe infiltrate with new small bilateral pleural effusions. There is a new left perihilar opacity which may represent multifocal pneumonia.
[2024-04-23 11:22] VITALS: BP 134/70
[2024-04-23] MEDS: STERILE WATER FOR INJECTION 20 ML IV (12:29)
[2024-04-23] MEDS: ROCEPHIN 2000 MG IV (12:30)
--- NOTE | 2024-04-23 15:26 | CM ---
Reviewed the chart notes and spoke with the patient via telephone. Discussed PT recommendation of SNF at discharge. Patient declining. Offered VN services. Patient wants to wait closer to discharge to discuss discharge plans. Per patient, 'I
need to get rid of this pneumonia first'. CM continues to be available to patient/family and is monitoring medical plan for needs at discharge.
Plan: Discharge plans will depend on the patient's progress.
[2024-04-23 15:55] VITALS: BP 119/65
--- NOTE | 2024-04-23 17:28 | W.PN.HOSP.TC ---
Today's Communication/Plan
-
continue current Tx
Assessment / Plan
Assessment / Plan
#Sepsis 2/2 right lower lobe secondary bacterial pneumonia in setting of recent COVID infection--poa
urine pos for Strep PNA
WBC 18.5-->15.0-->11.2-->7.6, 99F, HR 125, 105/64
-IV 1 L NSS given in ER
-IV Rocephin and azithromycin given, ID stopped the Azithromycin
-Mucinex twice daily
-Follow CBC, CMP. WBC downtrending. LA wnl. Procal of 14 noted on admission
-Symptomatic management. Patient weaned off to room air.
CXR: There is a persistent right lower lobe infiltrate with new small bilateral pleural effusions.
There is a new left perihilar opacity which may represent multifocal pneumonia.
-should get repeat CXR in 4-6 weeks to assess for resolution
Covid-19
symptom onset 04/09, tested pos 04/16 (as per ID, out of window for treatment)
repeat study remained pos on 04/20
# Acute hypoxic respiratory insufficiency likely secondary to above
-Patient weaned off to room air. As needed inhalers
#Vasovagal syncope secondary hypovolemia
-IV NSS 1 L given in ER
#Hypovolemic hyponatremia
NA 128-->133-->134
, TSH with free T4 reflex
IV NSS 1 liter given in er
stopped Iv nss 80 cc/hr, will slow IVF, but continue for now
-Follow BMP
#Fibromyalgia Hx
DVT prophylaxis
Subcu Lovenox
reviewed with Dr. Bonilla
Full code
PT/OT-SNF. CM aware.
Reviewed with sonCaesar
If continues to improve, hopefully dc on 04/25
Pt has been getting rashes from Rocephin and required Benadryl, discussed with Dr. Bonilla, preference is to continue Rocephin and transition to Cefuroxime and use Benadryl prn, son informed on recommendation
Anticipated Discharge: 24 - 48 hours
Subjective/Interval History
-
Date of Service: April 23, 2024
States she is feeling better, voice is stronger
Objective Data
-
Labs:
Laboratory Results
04/23/24
07:43
WBC 7.6
Hgb 12.3
Hct 34.4 L
Plt Count 281
Sodium 134 L
Potassium 3.7
Chloride 103
Carbon Dioxide 21 L
BUN 10
Creatinine 0.7
Glucose 87
Calcium 8.0 L
Total Bilirubin 0.6
AST 54 H
ALT 50 H
Alkaline Phosphatase 205 H
Vital Signs:
Vital Signs
Temp Pulse Resp BP Pulse Ox
98.5 F 90 16 119/65 96
04/23/24 15:55 04/23/24 15:55 04/23/24 15:55 04/23/24 15:55 04/23/24 16:53
I&O
04/22/24 04/23/24 04/24/24
06:59 06:59 06:59
Intake Total 1680 / 1680 2580 / 2580 660 / 660
Output Total 450 / 450 200 / 200
Balance 1230 / 1230 2380 / 2380 660 / 660
Review of Systems
-
History Source: Patient and Coordinated Provider
Constitutional: Reports No Appetite
EENT: Reports No Symptoms Reported
Respiratory: Reports Cough and Trouble Breathing
Cardiac: Reports No Symptoms; Denies Chest Pain
Genitourinary: Reports No Symptoms
Physical Exam
-
General: Well Developed, Well Nourished and No Apparent Distress
HEENT: Normocephalic, Atraumatic and Moist Mucous Membranes
Respiratory: Rales (rt mid lung rales, do not clear with coughing); Negative Wheezes
Cardiac: Regular Rhythm and S1/S2
GI: Soft, Nontender and Nondistended
Musculoskeletal: No Clubbing, No Cyanosis and No Edema
Psych: Anxious
[2024-04-23] MEDS: LOVENOX 40 MG SC (18:23)
[2024-04-23 23:34] VITALS: BP 116/55
[2024-04-24] MEDS: NSS IV (03:08)
[2024-04-24 07:00] VITALS: BP 131/61
[2024-04-24] MEDS: BENADRYL 25 MG PO ×3 (08:05→21:43)
[2024-04-24] MEDS: MUCINEX 600 MG PO ×2 (08:05→21:43)
[2024-04-24 08:31] LABS: Hematocrit 32.4 % (37.0-47.0); Hemoglobin 11.7 g/dL (12.0-16.0); Mean Corp Hgb Conc. 36.1 g/dL (33.0-37.0); Mean Corpuscular Hgb 32.3 pg (27.0-31.0); Mean Corpuscular Volume 89.5 fL (81.0-99.0); Mean Platelet Volume 9.9 fL (7.4-10.4); Platelet Count 286 10^3/uL (130-400); Red Blood Cell Count 3.62 10^6/uL (4.20-5.40); Red Cell Dist. Width 13.2 % (11.5-14.5); White Blood Cell Count 7.4 10^3/uL (4.8-10.8)
[2024-04-24 08:43] LABS: ALT (SGPT) 42 U/L (0-35); AST (SGOT) 42 U/L (14-36); Albumin 2.3 g/dl (3.5-5.0); Alkaline Phosphatase 176 U/L (38-126); Blood Urea Nitrogen 8 mg/dl (7-17); Calcium 8.1 mg/dl (8.4-10.2); Carbon Dioxide 23 mmol/L (22-30); Chloride 104 mmol/L (98-107); Estimated Creatinine Clearance 76 ml/min; Glucose 95 mg/dl (70-99); Potassium 3.9 mmol/L (3.5-5.1); Sodium 135 mmol/L (135-145); Total Bilirubin 0.3 mg/dl (0.2-1.3); Total Protein 4.8 g/dl (6.3-8.2); eGFR > 60.00
[2024-04-24 09:55] LABS: % Basophils 1.1 % (0-2); % Eosinophils 0.3 % (0-6); % Immature Granulocytes 5.7 % (0-0.5); % Lymphocytes 10.7 % (20.5-51.1); % Monocytes 5.9 % (1.7-9.3); % Neutrophils 76.3 % (42.2-75.2); Absolute Basophils 0.1 10^3/uL (0-0.2); Absolute Immature Granulocytes 0.4 10^3/uL (0-0.05); Absolute Lymphocytes 0.8 10^3/uL (1.2-3.4); Absolute Monocytes 0.4 10^3/uL (0.1-0.6); Absolute Neutrophils 5.7 10^3/uL (1.4-6.5); Nucleated Red Blood Cells % 0 %
[2024-04-24 10:16] LABS: COVID-19 Antigen Negative (Negative)
--- NOTE | 2024-04-24 10:26 | W.PN.HOSP.TC ---
Today's Communication/Plan
-
repeat CXR
Consider CT scan of chest
check for flu
Pulm consult
Assessment / Plan
Assessment / Plan
#Sepsis 2/2 right lower lobe secondary bacterial pneumonia in setting of recent COVID infection--poa
urine pos for Strep PNA
WBC 18.5-->15.0-->11.2-->7.6-->7.4, 99F, HR 125, 105/64
-IV 1 L NSS given in ER
-IV Rocephin and azithromycin given, ID stopped the Azithromycin
-Mucinex twice daily
-Follow CBC, CMP. WBC downtrending. LA wnl. Procal of 14 noted on admission
-Symptomatic management. Patient weaned off to room air.
CXR: There is a persistent right lower lobe infiltrate with new small bilateral pleural effusions.
There is a new left perihilar opacity which may represent multifocal pneumonia.
-should get repeat CXR in 4-6 weeks to assess for resolution
Discussed with son, Caesar, he was just tested for Covid and was neg, but influenza came back positive, will be starting on Tamiflu
Covid-19
symptom onset 04/09, tested pos 04/16 (as per ID, out of window for treatment)
repeat study remained pos on 04/20, retested today, 04/24, now negative
Unclear as to why she feels worse today, will test for flu. Pulm consult will be requested
# Acute hypoxic respiratory insufficiency likely secondary to above
-Patient weaned off to room air. As needed inhalers
#Vasovagal syncope secondary hypovolemia
-IV NSS 1 L given in ER
#Hypovolemic hyponatremia
NA 128-->133-->134-->135
TSH 2.78
IV NSS 1 liter given in er
stopped Iv nss 80 cc/hr
-Follow BMP
#Fibromyalgia Hx
DVT prophylaxis
Subcu Lovenox
reviewed with Dr. Bonilla
Full code
PT/OT-SNF. CM aware.
Reviewed with sonCaesar 04/24
Pt has been getting rashes from Rocephin and required Benadryl, discussed with Dr. Bonilla, preference is to continue Rocephin and transition to Cefuroxime and use Benadryl prn, son informed on recommendation
complex situation
Anticipated Discharge: 24 - 48 hours
Subjective/Interval History
-
Date of Service: April 24, 2024
Was feeling better yesterday
Objective Data
-
Labs:
Laboratory Results
04/24/24
07:52
WBC 7.4
Hgb 11.7 L
Hct 32.4 L
Plt Count 286
Sodium 135
Potassium 3.9
Chloride 104
Carbon Dioxide 23
BUN 8
Creatinine 0.6
Glucose 95
Calcium 8.1 L
Total Bilirubin 0.3
AST 42 H
ALT 42 H
Alkaline Phosphatase 176 H
Vital Signs:
Vital Signs
Temp Pulse Resp BP Pulse Ox
97.9 F 81 18 131/61 93
04/24/24 07:00 04/24/24 07:00 04/24/24 07:00 04/24/24 07:00 04/24/24 09:19
I&O
04/23/24 04/24/24 04/25/24
06:59 06:59 06:59
Intake Total 2580 / 2580 1140 / 1140
Output Total 200 / 200
Balance 2380 / 2380 1140 / 1140
Review of Systems
-
History Source: Patient and Coordinated Provider
Constitutional: Reports No Appetite
EENT: Reports No Symptoms Reported
Respiratory: Reports Cough and Trouble Breathing (was better yesterday)
Cardiac: Reports No Symptoms; Denies Chest Pain
Genitourinary: Reports No Symptoms
Physical Exam
-
General: Well Developed, Well Nourished and No Apparent Distress
HEENT: Normocephalic, Atraumatic and Moist Mucous Membranes
Respiratory: Rales (rt mid lung rales, do not clear with coughing); Negative Wheezes
Cardiac: Regular Rhythm and S1/S2
GI: Soft, Nontender and Nondistended
Musculoskeletal: No Clubbing, No Cyanosis and No Edema
Psych: Anxious
--- NOTE | 2024-04-24 11:11 | CON.PUL ---
Consultation
Consultation Request
Date/Time Consultation Requested: 04/24/2024-11 45 AM
Date/Time Consultation Performed: 04/24/2019 5-11 40 5 AM
Requesting Provider: Hospitalist
Performing Provider: Dr. Rico
Reason for Consultation: Shortness of breath
Medical History
-
Chief Complaint: Shortness of breath
History of Present Illness:
74-year-old female with a history of fibromyalgia who was diagnosed with COVID 04/16/2025 and presents with shortness of breath, cough, diarrhea and weakness-pulmonary consulted for shortness of breath 04/24/2024.
Past Medical History
Past Medical History: None (Fibromyalgia. Right parotidectomy February 2011. Confusion for 3 weeks post colonoscopy.)
Social History
Tobacco: Non-smoker
Alcohol: None
Drug: None
Living: With Family
Occupational Exposures: No known asbestos exposure
Environmental Exposures: No known tuberculosis exposure
Family History
Family History: Reviewed & Not Pertinent
Allergies / Home Medications
Allergies
Allergy/AdvReac Type Severity Reaction Status Date / Time
cephalexin monohydrate Allergy Unknown/tolerated Verified 04/22/24 11:04
[From Keflex] ceftriaxone.
doxycycline Allergy Unknown Verified 04/20/24 14:44
erythromycin base Allergy Unknown Verified 04/20/24 14:44
[Erythromycin Base]
levofloxacin [From Levaquin] Allergy Unknown Verified 04/20/24 14:44
Penicillins Allergy Unknown Verified 04/20/24 14:44
tetracycline [Tetracycline] Allergy Unknown Verified 04/20/24 14:44
brie cheese Allergy Hives, Uncoded 04/20/24 14:44
swelling
Home Medications
�Medication �Instructions �Recorded �Confirmed �Last Taken �Type
ibuprofen 200 mg tablet 400 mg PO DAILYPRN PRN mild pain 04/20/24 04/20/24 04/19/24 History
Review of Systems
-
Unable to Obtain full review of systems at this time due to: Other (Per HPI)
Vitals / Labs / Diagnostic Testing
Vital Signs
Temp Pulse Resp BP Pulse Ox
97.9 F 81 18 131/61 93
04/24/24 07:00 04/24/24 07:00 04/24/24 07:00 04/24/24 07:00 04/24/24 09:19
Lab Data
04/24/24 07:52
04/24/24 07:52
Microbiology
04/20/24 16:32 Blood/Venous Blood Culture - Preliminary
No Growth in 72 hours- Final report to follow
04/20/24 14:54 Blood/Venous Blood Culture - Preliminary
No Growth in 72 hours- Final report to follow
04/22/24 02:00 Urine Legionella Urinary Antigen - Final
Negative for Legionella pneumophila Serogroup 1 antigen.
A negative result does not rule out the possiblity of
Legionella infection due to other serogroups or species of
Legionella. Clinical correlation is recommended.
04/22/24 02:00 Urine Streptococcus pneumoniae Antigen (M - Final
Positive for Strep pneumo Ag
Diagnostic Testing:
Physical Exam
-
Exam:
Well-nourished and well-developed in no apparent distress
HEENT-atraumatic, normocephalic
Neck-supple, no JVD, no bruit
Heart-regular rate and rhythm-no murmurs, rubs or gallops
Chest with diminished breath sounds, rare crackles,
Back without tenderness
Abdomen-soft, nontender, nondistended, no hepatosplenomegaly
Extremities-no cyanosis, clubbing, edema and good peripheral pulses
Integument-intact, no rashes, lesions or ecchymosis
Neurology-alert and oriented, nonfocal motor and sensory exam
Assessment
-
74-year-old female with a history of fibromyalgia who was diagnosed with COVID 04/16/2025 and presents with shortness of breath, cough, diarrhea and weakness-pulmonary consulted for shortness of breath 04/24/2024.
[id number]
Urine streptococcal antigen positive-unvaccinated for strep pneumonia
Recent COVID infection
Unvaccinated, symptom onset 04/05/2024, antigen + 04/16/2024, COVID - negative 04/24/2024
Vasovagal syncope
Hyponatremia-improved
Leukocytosis-resolved
Mild krslag-[id number]-ciejsetkrs 11.7
Conditions present prior to admission:
Fibromyalgia.
Right parotidectomy February 2011.
Confusion for 3 weeks post colonoscopy.
Plan
Acute decompensation related to viral infection in unvaccinated patient with superimposed bacterial community-acquired pneumonia.
Suspect slow to resolve-realistic expectations outlined to patient that it will take weeks before she feels 'back to normal
Supplemental oxygen-currently on room air 93% saturation
Check rest and exercise oximetry prior to discharge
Mucolytics
Incentive spirometry
Nebulizers as needed
Aspiration precautions.
Check CT chest.
Check echocardiogram.
Check ESR
Cultures reviewed
Urine streptococcal pneumonia antigen positive
Blood cultures negative
Influenza negative
COVID + 04/16/2024
COVID - 04/24/2024
Infectious disease following-correspondence reviewed
Continue course of antibiotics
DVT prophylaxis-on Lovenox.
Nutrition
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
Outpatient follow-up to ensure radiographic clearing-lives in [place]-told to follow-up with primary or pulmonary down there
Diagnostic data:
Chest x-ray 04/16/2024-NAD
Chest x-ray 05/11-moderate asymmetrical opacification right lung consistent with right lower lobe pneumonia
Chest x-ray 04/23/2024-persistent right lower lobe infiltrate and new small bilateral pleural effusions, new perihilar opacification representing multifocal pneumonia
Data Reviewed
-
EKG: Report reviewed by me
Radiology: Image personally visualized and interpreted and Report reviewed by me
Medical Tests (Nuc Med, Echo etc): Report reviewed by me
Labs: Labs reviewed by me
Old Records: Reviewed
Total Time Spent with Patient (in minutes): 55
[2024-04-24 11:50] VITALS: BP 122/66; BP 123/75; BP 126/71; BP 143/94; PULSE 89; PULSE 92; PULSE 95; O2SAT 93
[2024-04-24] MEDS: ROCEPHIN 2000 MG IV (13:26)
[2024-04-24] MEDS: STERILE WATER FOR INJECTION 20 ML IV (13:26)
[2024-04-24] MEDS: TYLENOL 650 MG PO (13:43)
--- NOTE | 2024-04-24 15:02 | W.PN.ID1 ---
Date of Service
Date of Service: April 24, 2024
Today's Communication
Continue ceftriaxone (d5 of 7). Continue Benadryl prn for pruritis.
Assessment / Plan
# Pneumococcal PNA, unvaccinated status
# Leukocytosis - resolved
# Fever - resolved
# s/p Hypoxic respiratory insufficiency
# Multiple abx allergies: PCN, cephalexin, doxycycline, levofloxacin, cipro
- Flu neg.
- Urine strep pneumo antigen positive
- Pruritus with ceftriaxone. Sxs controlled with Benadryl.
- Pt with multiple abx allergies -> limited abx options.
- Continue ceftriaxone (d5 of 7). Continue Benadryl prn for pruritis.
# Recent COVID 19 infection
- Unvaccinated status
- Symptom onset 04/09/24
- 04/16 COVID19 antigen positive
- 04/16 CXR negative
- Presented to ED 04/16 , out of window for treatment.
- 04/20/24 repeat COVID 19 remains positive.
- 04/24/24 COVID 19 converted to negative.
- Can dc COVID isolation.
Chief Complaint
-: Pneumonia
Subjective / Review of Systems
c/o about not feeling better.
I did watch her briskly ambulate with walker from door to bed. Previously she was so weak she could not get out of bed.
+ puritus after abx, controlled with Benadryl
Son just diagnosed with influenza.
Vital Signs / Physical Exam
Vital Signs
Vital Signs
Temp Pulse Resp BP Pulse Ox
97.9 F 81 18 131/61 93
04/24/24 07:00 04/24/24 07:00 04/24/24 07:00 04/24/24 07:00 04/24/24 09:19
Physical Exam
Constitutional: No Acute Distress
Cardiovascular: Regular Rate and S1/S2
Pulmonary: Coarse (Crackles right base. )
Gastrointestinal: Soft, Non Tender, Non Distended and Normal Bowel Sounds
Extremities: Negative Edema
Neurological: AO x 3
Objective Data
Lab Data
Lab Results
04/24/24 07:52
04/24/24 07:52
Estimated Creat Clear 76 ml/min 04/24/24 07:52
Lactic Acid 1.3 mmol/L (0.7-2.0) 04/20/24 19:11
Total Bilirubin 0.3 mg/dl (0.2-1.3) 04/24/24 07:52
AST 42 U/L (14-36) H 04/24/24 07:52
ALT 42 U/L (0-35) H 04/24/24 07:52
Alkaline Phosphatase 176 U/L (38-126) H 04/24/24 07:52
Most recent labs reviewed.
Micro Results:
04/20/24 14:54 Blood Culture - Preliminary
Blood/Venous No Growth in 4 days- Final report to follow
04/24/24 10:41 Influenza Types A & B (LISSETH) - Final
Nasal Swab Negative for Influenza A & B, NAAT
Negative results must be combined with clinical observations
and patient history.
Nucleic Acid Amplification test (NAAT)performed on the
[employer] platform.
04/20/24 16:32 Blood Culture - Preliminary
Blood/Venous No Growth in 72 hours- Final report to follow
04/22/24 02:00 Legionella Urinary Antigen - Final
Urine Negative for Legionella pneumophila Serogroup 1 antigen.
A negative result does not rule out the possiblity of
Legionella infection due to other serogroups or species of
Legionella. Clinical correlation is recommended.
Streptococcus pneumoniae Antigen (M - Final
Positive for Strep pneumo Ag
04/20/24 14:54 Influenza Types A & B (LISSETH) - Final
Nasal Swab Negative for Influenza A & B, NAAT
Negative results must be combined with clinical observations
and patient history.
Nucleic Acid Amplification test (NAAT)performed on the
[employer] platform.
04/20/24 CXR: New moderate asymmetric opacity in the right lower lung most consistent with MODERATE RIGHT LOWER LOBE PNEUMONIA.
04/23/24 CXR: There is a persistent right lower lobe infiltrate with new small bilateral pleural effusions. There is a new left perihilar opacity which may represent multifocal pneumonia.
04/24/24 CT chest: There are patchy groundglass opacities in both upper lobes with moderate similar findings in the right lower lobe and moderate airspace disease in right lower lobe and mild airspace disease in the left lower lobe. Small bilateral
pleural effusions.
Care Review
Plan reviewed with: Physician (Dr. Hardin)
[2024-04-24 15:26] VITALS: BP 127/71
--- NOTE | 2024-04-24 15:27 | CM ---
Reviewed the chart notes and spoke with the patient at the bedside. Patient still unsure of disposition. CM continues to be available to patient/family and is monitoring medical plan for needs at discharge.
Plan: Discharge plans will depend on the patient's progress.
[2024-04-24 17:00] VITALS: BP 136/76; PULSE 85; O2SAT 96
[2024-04-24] MEDS: LOVENOX 40 MG SC (17:18)
[2024-04-24 23:36] VITALS: BP 121/67
[2024-04-25 07:20] VITALS: BP 135/70
[2024-04-25] MEDS: MUCINEX PO ×2 (08:02→20:17)
--- NOTE | 2024-04-25 09:17 | W.PN.ID1 ---
Addendum entered and electronically signed by Daphne Bonilla MD 04/25/24 16:24:
After receiving ceftriaxone today (6th dose), she felt like her throat was closing and could not breathe. She took Benadryl , refused steroid, now she is much improved. She reports breathing fine now, can swallow. Vitals normal. DC ceftriaxone. No
need for further abx for pneumonia.
Original Note:
Date of Service
Date of Service: April 25, 2024
Today's Communication
Continue ceftriaxone x7 days through tomorrow 04/26/24
Recommend eventual PCV20 vaccine when fully recovered.
ID will sign off. Call if any questions.
Assessment / Plan
# Pneumococcal PNA, unvaccinated status
# Leukocytosis - resolved
# Fever - resolved
# s/p Hypoxic respiratory insufficiency
# Multiple abx allergies: PCN, cephalexin, doxycycline, levofloxacin, cipro
- Flu neg.
- Urine strep pneumo antigen positive
- Pruritus with ceftriaxone. Sxs controlled with Benadryl.
- Pt with multiple abx allergies -> limited abx options.
- Continue ceftriaxone x7 days through tomorrow 04/26/24
- Today's CXR shows improving RLL opacity.
- Recommend eventual PCV20 vaccine when fully recovered.
- ID will sign off.
# Recent COVID 19 infection
- Unvaccinated status
- Symptom onset 04/09/24
- 04/16 COVID19 antigen positive
- 04/16 CXR negative
- Presented to ED 04/16 , out of window for treatment.
- 04/20/24 repeat COVID 19 remains positive.
- 04/24/24 COVID 19 converted to negative.
- Can dc COVID isolation.
Chief Complaint
-: Pneumonia
Subjective / Review of Systems
Cough resolving.
Feels deconditioned still.
Vital Signs / Physical Exam
Vital Signs
Vital Signs
Temp Pulse Resp BP Pulse Ox
98.2 F 94 16 135/70 95
04/25/24 07:20 04/25/24 07:20 04/25/24 07:20 04/25/24 07:20 04/25/24 07:58
Physical Exam
Constitutional: No Acute Distress and Comfortable
Pulmonary: Coarse (Minimal crackles right base)
Gastrointestinal: Soft, Non Tender, Non Distended and Normal Bowel Sounds
Genito-Urinary: Negative CVA Tenderness
Neurological: AO x 3
Objective Data
Lab Data
Estimated Creat Clear 76 ml/min 04/24/24 07:52
Lactic Acid 1.3 mmol/L (0.7-2.0) 04/20/24 19:11
Total Bilirubin 0.3 mg/dl (0.2-1.3) 04/24/24 07:52
AST 42 U/L (14-36) H 04/24/24 07:52
ALT 42 U/L (0-35) H 04/24/24 07:52
Alkaline Phosphatase 176 U/L (38-126) H 04/24/24 07:52
Most recent labs reviewed.
Micro Results:
04/20/24 16:32 Blood Culture - Preliminary
Blood/Venous No Growth in 4 days- Final report to follow
04/20/24 14:54 Blood Culture - Preliminary
Blood/Venous No Growth in 4 days- Final report to follow
04/24/24 10:41 Influenza Types A & B (LISSETH) - Final
Nasal Swab Negative for Influenza A & B, NAAT
Negative results must be combined with clinical observations
and patient history.
Nucleic Acid Amplification test (NAAT)performed on the
[employer] platform.
04/22/24 02:00 Legionella Urinary Antigen - Final
Urine Negative for Legionella pneumophila Serogroup 1 antigen.
A negative result does not rule out the possiblity of
Legionella infection due to other serogroups or species of
Legionella. Clinical correlation is recommended.
Streptococcus pneumoniae Antigen (M - Final
Positive for Strep pneumo Ag
04/20/24 14:54 Influenza Types A & B (LISSETH) - Final
Nasal Swab Negative for Influenza A & B, NAAT
Negative results must be combined with clinical observations
and patient history.
Nucleic Acid Amplification test (NAAT)performed on the
[employer] platform.
04/20/24 CXR: New moderate asymmetric opacity in the right lower lung most consistent with MODERATE RIGHT LOWER LOBE PNEUMONIA.
04/23/24 CXR: There is a persistent right lower lobe infiltrate with new small bilateral pleural effusions. There is a new left perihilar opacity which may represent multifocal pneumonia.
04/24/24 CT chest: There are patchy groundglass opacities in both upper lobes with moderate similar findings in the right lower lobe and moderate airspace disease in right lower lobe and mild airspace disease in the left lower lobe. Small bilateral
pleural effusions.
04/25/24 CXR: Improvement in mid to lower right lower lobe opacity. Opacities of the lung bases shown by the prior CT are not well seen on these radiographs. They may have resolved, or may be radiographically occult (as they were also not shown by
the radiograph dated 04/23/2024). Pulmonary emphysema. Small left pleural effusion redemonstrated. No right pleural effusion identified.
Care Review
Plan reviewed with: Physician (Dr. Hardin)
[2024-04-25 09:26] LABS: Hematocrit 37.5 % (37.0-47.0); Hemoglobin 13.1 g/dL (12.0-16.0); Mean Corp Hgb Conc. 34.9 g/dL (33.0-37.0); Mean Corpuscular Hgb 32.2 pg (27.0-31.0); Mean Corpuscular Volume 92.1 fL (81.0-99.0); Mean Platelet Volume 9.5 fL (7.4-10.4); Platelet Count 370 10^3/uL (130-400); Red Blood Cell Count 4.07 10^6/uL (4.20-5.40); Red Cell Dist. Width 13.4 % (11.5-14.5); White Blood Cell Count 8.8 10^3/uL (4.8-10.8)
[2024-04-25 10:21] LABS: Erythrocyte Sed Rate 43 mm/hour (0-20)
[2024-04-25 10:34] LABS: Blood Urea Nitrogen 7 mg/dl (7-17); Calcium 8.6 mg/dl (8.4-10.2); Carbon Dioxide 25 mmol/L (22-30); Chloride 102 mmol/L (98-107); Estimated Creatinine Clearance 66 ml/min; Glucose 117 mg/dl (70-99); Potassium 4.5 mmol/L (3.5-5.1); Sodium 138 mmol/L (135-145); eGFR > 60.00
[2024-04-25 12:35] LABS: % Basophils 0.9 % (0-2); % Eosinophils 0.5 % (0-6); % Immature Granulocytes 5.8 % (0-0.5); % Lymphocytes 12.7 % (20.5-51.1); % Monocytes 4.8 % (1.7-9.3); % Neutrophils 75.3 % (42.2-75.2); Absolute Basophils 0.1 10^3/uL (0-0.2); Absolute Immature Granulocytes 0.5 10^3/uL (0-0.05); Absolute Lymphocytes 1.1 10^3/uL (1.2-3.4); Absolute Monocytes 0.4 10^3/uL (0.1-0.6); Absolute Neutrophils 6.6 10^3/uL (1.4-6.5); Nucleated Red Blood Cells % 0 %
[2024-04-25] MEDS: STERILE WATER FOR INJECTION 20 ML IV (12:39)
[2024-04-25] MEDS: ROCEPHIN 2000 MG IV (12:39)
--- NOTE | 2024-04-25 12:40 | W.PN.HOSP.TC ---
Today's Communication/Plan
-
If continues to improve, dc tomorrow
Assessment / Plan
Assessment / Plan
#Sepsis 2/2 right lower lobe secondary bacterial pneumonia in setting of recent COVID infection--poa
urine pos for Strep PNA
WBC 18.5-->15.0-->11.2-->7.6-->7.4-->8.8, 99F, HR 125, 105/64
-IV 1 L NSS given in ER
-IV Rocephin and azithromycin given, ID stopped the Azithromycin
-Mucinex twice daily
-Follow CBC, CMP. WBC downtrending. LA wnl. Procal of 14 noted on admission
-Symptomatic management. Patient weaned off to room air.
CXR: There is a persistent right lower lobe infiltrate with new small bilateral pleural effusions.
There is a new left perihilar opacity which may represent multifocal pneumonia.
-should get repeat CXR in 4-6 weeks to assess for resolution
Discussed with son, Caesar, he was just tested for Covid and was neg, but influenza came back positive, will be starting on Tamiflu. He is feeling better, but needs to stay away from [facility] mother
Covid-19
symptom onset 04/09, tested pos 04/16 (as per ID, out of window for treatment)
repeat study remained pos on 04/20, retested today, 04/24, now negative
Pulm consult appreciated
# Acute hypoxic respiratory insufficiency likely secondary to above
-Patient weaned off to room air. As needed inhalers
#Vasovagal syncope secondary hypovolemia
-IV NSS 1 L given in ER
#Hypovolemic hyponatremia
NA 128-->133-->134-->135
TSH 2.78
IV NSS 1 liter given in er
stopped Iv nss 80 cc/hr
-Follow BMP
#Fibromyalgia Hx
DVT prophylaxis
Subcu Lovenox
reviewed with Dr. Bonilla
Full code
PT/OT-SNF. CM aware.
Reviewed with sonCaesar 04/24
Pt has been getting rashes from Rocephin and required Benadryl, discussed with Dr. Bonilla, preference is to continue Rocephin and transition to Cefuroxime and use Benadryl prn, son informed on recommendation
complex situation
Anticipated Discharge: Within 24 hours
Subjective/Interval History
-
Date of Service: April 25, 2024
Feels a little better today
Objective Data
-
Labs:
Laboratory Results
04/25/24
09:08
WBC 8.8
Hgb 13.1
Hct 37.5
Plt Count 370 D
Sodium 138
Potassium 4.5
Chloride 102
Carbon Dioxide 25
BUN 7
Creatinine 0.7
Glucose 117 H
Calcium 8.6
Vital Signs:
Vital Signs
Temp Pulse Resp BP Pulse Ox
98.2 F 94 16 135/70 95
04/25/24 07:20 04/25/24 07:20 04/25/24 07:20 04/25/24 07:20 04/25/24 08:12
I&O
04/24/24 04/25/24 04/26/24
06:59 06:59 06:59
Intake Total 1140 / 1140 1360 / 1360
Balance 1140 / 1140 1360 / 1360
Review of Systems
-
History Source: Patient and Coordinated Provider
Constitutional: Reports No Appetite
EENT: Reports No Symptoms Reported
Respiratory: Reports Cough and Trouble Breathing (better)
Cardiac: Reports No Symptoms; Denies Chest Pain
Genitourinary: Reports No Symptoms
Physical Exam
-
General: Well Developed, Well Nourished and No Apparent Distress
HEENT: Normocephalic, Atraumatic and Moist Mucous Membranes
Respiratory: Rales (rt mid lung rales, do not clear with coughing, improved air movement); Negative Wheezes
Cardiac: Regular Rhythm and S1/S2
GI: Soft, Nontender and Nondistended
Musculoskeletal: No Clubbing, No Cyanosis and No Edema
Psych: Anxious
--- NOTE | 2024-04-25 14:29 | W.PN.PUL.V3 ---
Today's Communication / Plan
-
.
Increase activity.
Finite course of antibiotics.
Outpatient radiographic follow-up in [place].
Pulmonary will sign off
Assessment
-
74-year-old female with a history of fibromyalgia who was diagnosed with COVID 04/16/2025 and presents with shortness of breath, cough, diarrhea and weakness-pulmonary consulted for shortness of breath 04/24/2024.
Facneayio-qdwklvpfo-[id number]
Urine streptococcal antigen positive-unvaccinated for strep pneumonia
Recent COVID infection
Unvaccinated, symptom onset 04/05/2024, antigen + 04/16/2024, COVID - negative 04/24/2024
Vasovagal syncope
Hyponatremia-improved
Leukocytosis-resolved
Mild cwypjl-kbitowblhh-nkjwohzsmm 11.7
Conditions present prior to admission:
Fibromyalgia.
Right parotidectomy February 2011.
Confusion for 3 weeks post colonoscopy.
Plan
Acute decompensation related to viral infection in unvaccinated patient with superimposed bacterial community-acquired pneumonia.
Suspect slow to resolve-realistic expectations outlined to patient that it will take weeks before she feels 'back to normal'
Supplemental oxygen-currently on room air 93% saturation
Check rest and exercise oximetry prior to discharge
Mucolytics
Incentive spirometry
Nebulizers as needed
Aspiration precautions.
Chest x-ray 04/25/24-improvement in right lower lobe opacification.
CT chest 04/24/24-multifocal pneumonia, small bilateral pleural effusions.
Echocardiogram 04/24/24-EF 67%, normal diastolic function, moderate mitral regurgitation, PA systolic 44
Check ESR-43
Cultures reviewed
Urine streptococcal pneumonia antigen positive
Blood cultures negative
Influenza negative
COVID + 04/16/2024
COVID - 04/24/2024
Infectious disease following-correspondence reviewed
Continue course of antibiotics-ceftriaxone through tomorrow 04/26/24.
Prevnar 20 vaccine when fully recovered
DVT prophylaxis-on Lovenox.
Nutrition
Increase activity-normally walks 2 miles a day, 'esthetician/skin therapist'..
Reviewed with primary team
Respiratory status has improved significantly-finish course of antibiotics and outpatient radiographic follow-up in [place]-pulmonary will sign off
Outpatient follow-up to ensure radiographic clearing-lives in [place]-told to follow-up with primary or pulmonary down there
Diagnostic data:
Chest x-ray 04/16/2024-NAD
Chest x-ray 05/11-moderate asymmetrical opacification right lung consistent with right lower lobe pneumonia
Chest x-ray 04/23/2024-persistent right lower lobe infiltrate and new small bilateral pleural effusions, new perihilar opacification representing multifocal pneumonia
Subjective Data
-
Date of Service:
Date of Service: April 25, 2024
Chief Complaint: Pulmonary Follow Up and Dyspnea Follow Up
Subjective:
Feels better, on room air, no complaints of shortness of breath at rest, dyspnea exertion improved, no productive cough or abdominal pain
Review of Systems
General: Other ( per HPI)
Objective Data
Data Reviewed
Vital Signs / I&O:
Vital Signs
Temp Pulse Resp BP Pulse Ox
98.2 F 94 16 135/70 95
04/25/24 07:20 04/25/24 07:20 04/25/24 07:20 04/25/24 07:20 04/25/24 08:12
Intake and Output
04/24/24 04/25/24 04/26/24
06:59 06:59 06:59
Intake Total 1140 / 1140 1360 / 1360
Balance 1140 / 1140 1360 / 1360
SaO2: 95
Nasal Cannula flow liters per minute: 4
Physical Exam
General: Respiratory Distress (n) and Comfortable
HEENT: Normocephalic, Anicteric and Moist Mucous Membranes
Cardiovascular: Regular Rhythm
Respiratory: Wheeze (n), Crackles ( bilateral bases), Rhonchi (n), Non-Labored Respirations, Accessory Resp Muscle Use (n) and Stridor (n)
GI: Soft, Non Distended and Non Tender (n)
Neurology: Awake, Alert and No Motor Deficits
Skin: Warm, Good Color, Cyanosis (n), Jaundice (n) and Rash (n)
Labs/Micro/Reports
Lab Data
04/25/24 09:08
04/25/24 09:08
Microbiology
04/20/24 16:32 Blood/Venous Blood Culture - Preliminary
No Growth in 4 days- Final report to follow
04/20/24 14:54 Blood/Venous Blood Culture - Preliminary
No Growth in 4 days- Final report to follow
04/24/24 10:41 Nasal Swab Influenza Types A & B (LISSETH) - Final
Negative for Influenza A & B, NAAT
Negative results must be combined with clinical observations
and patient history.
Nucleic Acid Amplification test (NAAT)performed on the
[employer] platform.
[2024-04-25] MEDS: BENADRYL 25 MG PO (15:12)
[2024-04-25 15:30] VITALS: BP 140/71
--- NOTE | 2024-04-25 15:43 | PTCARENOTE ---
Pt called this RN to room to say that she feels like she is having an allergic reaction to the IV abx she has taken about three hours prior. This dose is her second to last to be receiving of this medication. Pt stating her throat is closing, head
is feeling 'full' and she is dizzy. No signs of throat closing or rash on this pt. VSS, this RN offered benadryl to pt and pt declined and insisted MD came in. Pt made aware that MD's first line of defense would be benadryl, pt now agreeable to take
it, see MAR. MD made aware, ABX placed on hold, RN instructed to give one time dose of hydrocortisone and benadryl IV as ordered if symptoms do not improve within the next hour. Pt feeling more relaxed now, no new orders at this time.
--- NOTE | 2024-04-25 15:46 | CM ---
Reviewed the chart notes. Pulmonology has signed off. Attempted to speak with the patient at the bedside with regards to discharge plans. Patient dismissed CM and requested to speak with someone regarding a potential reaction she was feeling
after receiving IV abx earlier. decision support manager notified and attended to the patient. Patient ambulating ad tita in room. PT recommending home health. CM continues to be available to patient/family and is monitoring medical plan for needs at discharge.
Plan: Discharge to home with VN vs no needs.
--- NOTE | 2024-04-25 16:20 | W.PN.UPDATE ---
Update Note
Progress Note Update
After receiving ceftriaxone today (6th dose), she felt like her throat was closing and could not breathe. She took Benadryl , refused steroid, now she is much improved. She reports breathing fine now, can swallow. Vitals normal. DC ceftriaxone. No
need for further abx for pneumonia.
[2024-04-25 16:58] VITALS: BP 142/85
[2024-04-25] MEDS: LOVENOX 40 MG SC (17:08)
[2024-04-25 22:43] VITALS: BP 115/65
[2024-04-26 07:25] VITALS: BP 117/63
[2024-04-26] MEDS: MUCINEX PO ×2 (08:30→20:32)
--- NOTE | 2024-04-26 10:03 | W.PN.HOSP.TC ---
Today's Communication/Plan
-
Script written for [facility] and given to nurse
Assessment / Plan
Assessment / Plan
#Sepsis 2/2 right lower lobe secondary bacterial pneumonia in setting of recent COVID infection--poa
urine pos for Strep PNA
WBC 18.5-->15.0-->11.2-->7.6-->7.4-->8.8, 99F, HR 125-->84, 105/64
-IV 1 L NSS given in ER
-IV Rocephin and azithromycin given, ID stopped the Azithromycin initially, now stopped the Rocephin
-Mucinex twice daily
-Follow CBC, CMP. WBC downtrending. LA wnl. Procal of 14 noted on admission
-Symptomatic management. Patient weaned off to room air.
CXR: There is a persistent right lower lobe infiltrate with new small bilateral pleural effusions.
There is a new left perihilar opacity which may represent multifocal pneumonia.
-should get repeat CXR in 4-6 weeks to assess for resolution
Discussed with son, Caesar, 04/25, he was just tested for Covid and was neg, but influenza came back positive, will be starting on Tamiflu. He is feeling better, but needs to stay away from his mother
Call placed to review with son, 04/26, no answer. Will try later
Covid-19
symptom onset 04/09, tested pos 04/16 (as per ID, out of window for treatment)
repeat study remained pos on 04/20, retested 04/24, now negative
Pulm consult appreciated
# Acute hypoxic respiratory insufficiency likely secondary to above
-Patient weaned off to room air. As needed inhalers
#Vasovagal syncope secondary hypovolemia
-IV NSS 1 L given in ER
#Hypovolemic hyponatremia
NA 128-->133-->134-->135
TSH 2.78
IV NSS 1 liter given in er
stopped Iv nss 80 cc/hr
-Follow BMP
#Fibromyalgia Hx
DVT prophylaxis
Subcu Lovenox
reviewed with Dr. Bonilla
Full code
PT/OT-SNF. CM aware.
Reviewed with sonCaesar 04/24, 04/25
Await completion of home arrangements with potential dc tomorrow
Anticipated Discharge: 24 - 48 hours
Subjective/Interval History
-
Date of Service: April 26, 2024
Generally feeling better
Objective Data
-
Vital Signs:
Vital Signs
Temp Pulse Resp BP Pulse Ox
98.2 F 84 16 117/63 93
04/26/24 07:25 04/26/24 07:25 04/26/24 07:25 04/26/24 07:25 04/26/24 07:25
I&O
04/25/24 04/26/24 04/27/24
06:59 06:59 06:59
Intake Total 1360 / 1360 1530 / 1530
Balance 1360 / 1360 1530 / 1530
Review of Systems
-
History Source: Patient and Coordinated Provider
Constitutional: Reports No Appetite
EENT: Reports No Symptoms Reported
Respiratory: Reports Cough (better) and Trouble Breathing (much better)
Cardiac: Reports No Symptoms; Denies Chest Pain
Genitourinary: Reports No Symptoms
Physical Exam
-
General: Well Developed, Well Nourished and No Apparent Distress
HEENT: Normocephalic, Atraumatic and Moist Mucous Membranes
Respiratory: Rales (rt mid lung rales, much improved, improved air movement); Negative Wheezes
Cardiac: Regular Rhythm and S1/S2
GI: Soft, Nontender and Nondistended
Musculoskeletal: No Clubbing, No Cyanosis and No Edema
Psych: Anxious
--- NOTE | 2024-04-26 11:13 | CM ---
Reviewed the chart notes and spoke with the patient at the beside. IMM reviewed. The patient anticipates being discharged to home today. Discussed VN services. Patient feels she is moving about ad tita and declines at this time. CM continues to
be available to patient/family and is monitoring medical plan for needs at discharge.
Plan: Discharge to patient's son home when medically stable. Patient is temporarily staying with son to assist with his children. Patient is from [place].
[2024-04-26 15:15] VITALS: BP 123/59
[2024-04-26 16:31] VITALS: BP 141/78; BP 151/80; PULSE 105; O2SAT 95
[2024-04-26] MEDS: LOVENOX 40 MG SC (17:40)
[2024-04-26 23:25] VITALS: BP 108/61
[2024-04-27 06:53] VITALS: BP 131/73
[2024-04-27] MEDS: MUCINEX PO (08:04)
--- NOTE | 2024-04-27 09:20 | W.PN.HOSP.TC ---
Today's Communication/Plan
-
dc to home
Assessment / Plan
Assessment / Plan
#Sepsis 2/2 right lower lobe secondary bacterial pneumonia in setting of recent COVID infection--poa
urine pos for Strep PNA
WBC 18.5-->15.0-->11.2-->7.6-->7.4-->8.8, 99F, HR 125-->84, 105/64
-IV 1 L NSS given in ER
-IV Rocephin and azithromycin given, ID stopped the Azithromycin initially, now stopped the Rocephin
-Mucinex twice daily
-Follow CBC, CMP. WBC downtrending. LA wnl. Procal of 14 noted on admission
-Symptomatic management. Patient weaned off to room air.
CXR: There is a persistent right lower lobe infiltrate with new small bilateral pleural effusions.
There is a new left perihilar opacity which may represent multifocal pneumonia.
-should get repeat CXR in 4-6 weeks to assess for resolution
Discussed with son, Caesar, 04/25, he was just tested for Covid and was neg, but influenza came back positive, will be starting on Tamiflu. He is feeling better, but needs to stay away from his mother
Call placed to review with son, 04/26, no answer. Will try later
Covid-19
symptom onset 04/09, tested pos 04/16 (as per ID, out of window for treatment)
repeat study remained pos on 04/20, retested 04/24, now negative
Pulm consult appreciated
# Acute hypoxic respiratory insufficiency likely secondary to above
-Patient weaned off to room air. As needed inhalers
#Vasovagal syncope secondary hypovolemia
-IV NSS 1 L given in ER
#Hypovolemic hyponatremia
NA 128-->133-->134-->135
TSH 2.78
IV NSS 1 liter given in er
stopped Iv nss 80 cc/hr
-Follow BMP
#Fibromyalgia Hx
DVT prophylaxis
Subcu Lovenox
reviewed with Dr. Bonilla
Full code
PT/OT-SNF. CM aware.
Reviewed with Caesar adkins 04/24, 04/25, 04/26
Everything set at son's house for pt to be dc
see dictated note
More than 30 minutes spent in discharge including
Final examination of the patient
Summarizing hospital stay
Instructions for continuing care to all relevant caregivers
Preparation of discharge records, prescriptions, and referral forms
Total time spent (in minutes):45
Anticipated Discharge: Today
Subjective/Interval History
-
Date of Service: April 27, 2024
Generally feels better
Objective Data
-
Vital Signs:
Vital Signs
Temp Pulse Resp BP Pulse Ox
98.1 F 92 16 131/73 94
04/27/24 06:53 04/27/24 06:53 04/27/24 06:53 04/27/24 06:53 04/27/24 06:53
I&O
04/26/24 04/27/24 04/28/24
06:59 06:59 06:59
Intake Total 1530 / 1530 840 / 840
Balance 1530 / 1530 840 / 840
Review of Systems
-
History Source: Patient and Coordinated Provider
Constitutional: Reports No Appetite
EENT: Reports No Symptoms Reported
Respiratory: Reports Cough (better) and Trouble Breathing (much better)
Cardiac: Reports No Symptoms; Denies Chest Pain
Genitourinary: Reports No Symptoms
Physical Exam
-
General: Well Developed, Well Nourished and No Apparent Distress
HEENT: Normocephalic, Atraumatic and Moist Mucous Membranes
Respiratory: Negative Wheezes or Rales (resolved)
Cardiac: Regular Rhythm and S1/S2
GI: Soft, Nontender and Nondistended
Musculoskeletal: No Clubbing, No Cyanosis and No Edema
Psych: Anxious
[2024-04-27 10:20] VITALS: BP 132/89
--- NOTE | 2024-04-28 15:54 | W.DS.TRANS ---
DC Summary - [facility]
-
Discharge Instructions:
Discharge Diagnosis/Procedures Covid-19 with secondary Pneumonia
Diet Regular
Activity No strenuous activity,With Walker
Driving Restrictions No driving
Bathing Restrictions None
Instructions:
Stand-Alone Forms:
Changes to Home Medications: Yes
Discharge Medications:
DC Medications w/original date entered in [facility]
ibuprofen 200 mg tablet 400 mg PO DAILYPRN PRN mild pain 04/20/24
guaifenesin 600 mg tablet, extended release 12 hr 600 mg PO Q12 #30 tabs 04/27/24
Home Medication Changes
Mucinex added if needed
Pending Results: No
== END 2024-04-27 10:37 | disposition home or self-care (01) | DRG 871 ==
LOC: 2 NORTH 17:19
PROVIDERS: Clinical Nurse Specialist Family Health; Registered Nurse; ADMITTING PHYSICIAN Internal Medicine; ATTENDING PHYSICIAN Internal Medicine; CONSULT PHYSICIAN Internal Medicine Critical Care Medicine; CONSULT PHYSICIAN Internal Medicine Infectious Disease; EMERGENCY PHYSICIAN Emergency Medicine
DX: A41.9 Sepsis, unspecified organism (principal); J13 Pneumonia due to Streptococcus pneumoniae; U07.1 COVID-19; E87.1 Hypo-osmolality and hyponatremia; R09.02 Hypoxemia; M79.7 Fibromyalgia; R55 Syncope and collapse; Z88.1 Allergy status to other antibiotic agents; Z88.0 Allergy status to penicillin; E86.1 Hypovolemia; D64.9 Anemia, unspecified; R06.89 Other abnormalities of breathing
CPT/HCPCS: 71045; 71046; 71250; 80048; 80053; 83605; 83930; 83935; 84145; 84300; 84443; 85025; 85652; 86140; 87040; 87449; 87502; 87811; 87899; 93005; 93306; 94640; 94760; 96361; 96374; 97116; 97162; 97166; 97530; 97535; 99285